=== PATIENT | female | born 1955 | race Two or more races ===

== ENCOUNTER 2024-11-16 08:27 | Outpatient (RCR) | payer MEDICARE, BC, SELFPAY ==
--- NOTE | 2024-11-03 13:12 | CTCCONSULT_ITS ---
[facility] [address] [place], [place] [address] Consultation Note Date: 11/03/2024 MR#: [id number] Name: PARISH PRIDE : 1955 Dx: C50.412 Attending physician. Jose Ferrell MD Referring physician. Liana Fields MD Reason for consultation. Patient with stage I T1b N0 HER2/zee overexpressed referred to the cancer c enter for adjuvant therapy. History of Present Illness: Patient is a 69-year-old lady who has had prior imaging studies including left mammogram showing 12 mm 11:00 nodule 11/27/2023 and more recently left breast ultrasou nd 07/04/2024 revealing category 4 suspicion for malignancy. Ultrasound-guided biopsy 09/01/2024 reveal ed invasive ductal carcinoma. HER2/zee was 3+. ER 1+ positive [place] negative. On 09/30/2024 patient un derwent lumpectomy revealing invasive carcinoma 0.9 x 0.9 x 0.5 cm T1b size with ER 1+ [place] negative an d HER2/zee 3+ with Ki-67 40 to 50%. 4 benign sentinel lymph nodes noted. margins negative. SBR 8/9 high-grade. Patient is now referred to the cancer treatment center. Medical History: High blood pressure diabetes History of gallbladder disease Meds. Ozempic Tresiba metformin Jardiance benazepril Lipitor aspirin gabapentin levocetirizine Allergies Cipro Family history. Mother had uterine cancer treated at [facility] many years ago Social History: Denies smoking drinking age of first 15 4 pregnancies 4 births Review of Systems: Has had cold heat intolerance concern with sexual functions difficulty hearing eas y bruising headaches leak urine muscle pain nocturia sleep problem Physical Exam: adequate nourished appearing lady no acute distress General: HEENT: Atraumatic no cephalic extraocular is intact no oral lesion no cervical or supraclavicular aris nopathy. CV: Breast not examined today. Chest clear to auscultation heart regular rate and rhythm ABD: Soft no organomegaly or tenderness EXT: No cyanosis clubbing or edema Assessment: 1.Stage IA T1b snN0 left breast CA HER2/zee overexpressed SBR high-grade Ki-67 40 to 50% ER 1+ [place] negative. Status post left partial mastectomy and sentinel node removal 09/30/2024. 2. Though early stage the HER2/zee overexpressed and the high-grade with elevated Ki-67 puts cancer as a more aggressive type. 3. Dr. Peters, [facility] medical oncologist, will see patient in a few da ys. 4. I will see her in a few weeks as well regarding comprehensive approach in care of this patient. 5. Thank you very much for allowing me to evaluate this very nice patient Cc: Liana Ferrell MD Electronically signed by: Alejandro Connors MD, DABR 11/03/2024 1:09 PM
--- NOTE | 2024-12-05 21:04 | CTCCONSULT_ITS ---
Patient: PARISH PRIDE : 1955 MR#: [id number] Page 3 of 4 CONSULTATION NOTE DATE OF CONSULTATION: 11/16/2024 NAME: PARISH PRIDE ACCOUNT: [id number] : 1955 AGE: 69 REFERRING PHYSICIAN: Liana Fields MD PRIMARY PHYSICIAN: Jose Ferrell MD REASON FOR VISIT: Breast cancer ER/SD HER2 positive ONCOLOGY HISTORY: DIAGNOSIS: Malignant neoplasm of upper-outer quadrant of left female breast [ICD10] C50.412; Malignant neoplasm of overlapping sites of left female breast [ICD10] C50.812 DATE OF DIAGNOSIS: 09/01/2024 STAGE/TNM: IA T1b N0 M0 Invasive ductal carcinoma large focus 0.3 cm high-grade ER 1 to 10% progesterone negative HER2 3+ TREATMENT HISTORY: Care?Plan Start?Date Cycle Day Intent TCH?1 11/16/2024 1 21 Curative?(adjuvant) HISTORY OF PRESENT ILLNESS: 69-year-old female who was diagnosed with breast cancer. Patient had a lumpectomy done on 09/30/2024 and her final diagnosis showed HER2 positive breast cancer patient is here for follow-up. OTHER MEDICAL HISTORY/CONDITIONS: INVASIVE DUCTAL LEFT BREAST CANCER - DX 09/02/24 [facility] CATARACT SURGERY - EARLY 2023 DIABETES HTN PERIPHERAL NEUROPATHY PVD LEFT BREAST LUMPECTOMY WITH SENTINEL NODE BIOPSY 10/07/24 LEFT PARITIAL KNEE REPLACMENT - 6-7 YRS AGO CHOLECYSTECTOMY - 15 YRS AGO X 4 FAMILY HISTORY: Mother:?UTERINE?-?DX?AGE?60 Children: MAT 1ST COUSIN - UNKNOWM CANCER - DX AGE 55 Cancer History:?MAT 1ST COUSION - BREAST - DX 30'S; SOCIAL HISTORY: Occupational?History:?RETIRED Education?Level:?Completed High School Marital?Status:? 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 Asprin Ec Low Dose - 81 mg Daily 2. benazepril - 20 mg Daily 3. gabapentin - 300 mg Daily 4. Jardiance - 25 mg Daily 5. metformin - 1,000 mg Daily 6. Ozempic - 2 mg 7. Tresiba U-100 Insulin - 30 Units Daily 8. XyzaL - 5 mg Daily Medications Last Reconciled by Elly Cortés LVN on 11/03/2024 (Reconcile on Approval: ?) ALLERGIES: ciprofloxacin REVIEW OF SYSTEMS: A complete 14-point review of systems was performed and is negative except as noted in interval histo ry. PHYSICAL EXAMINATION: VITAL SIGNS: Temperature?98, B/P?118/70, Height?62?inches, Oxygen?Saturation?100% Weight?128?lbs (Merlene nge?since?11/03/24:?-4?lbs) PAIN: 0 - No pain ECOG Performance Status: 0 - Asymptomatic and fully active GENERAL APPEARANCE: Appears well, in no apparent distress, appropriately interactive. HEENT: Normocephalic, no temporal wasting, normal conjunctiva, no scleral icterus, normal hearing, li ps without lesions, neck normal range of motion. CARDIOVASCULAR: Not assessed. PULMONARY: Normal respiratory effort, no respiratory distress or use of accessory muscles, speaking i n full sentences, no tachypnea. EXTREMITIES: No pedal edema or cyanosis. SKIN: Normal skin appearance. NEUROLOGIC: Alert and oriented x4. PSHYCHIATRIC: Appropriate affect, mood normal, behavior normal, intact thought and speech. LABORATORY DATA: I have personally reviewed and interpreted each of the patient?s relevant lab tests, abnormal finding s are below: Date 11/17/24 ??WHITE?BLOOD?COUNT?(Thou/mm3) 5.0 ??RED?BLOOD?COUNT?(Miln/mm3) 4.51 ??HEMOGLOBIN?(gm/dl) 12.4 ??HEMATOCRIT?(%) 37.8 ??PLATELET?COUNT?(Thou/mm3) 247 ??NEUTROPHILS?%,?AUTO?(%) 53 ??LYMPH?%,?AUTO?(%) 37 ??NEUTROPHILS,?AUTO?(Thou/mm3) 2.6 ASSESSMENT/PLAN: ER positive HER2 positive breast cancer 4 sentinel lymph nodes were negative for cancer Discussed adjuvant chemotherapy as tumor is more than 0.5 cm Will start on TCH ORDERS: Echocardiogram TCH chemotherapy orders placed CBC CMP Port catheter RETURN TO CLINIC: Before the start of cycle 1 in 2 to 3 weeks I will see her back in the clinic in 2 weeks. BILLING AND COMPLIANCE: I reviewed external records from providers outside my specialty as summarized above. I spent a total of 50 minutes on this patient?s care on the day of their visit excluding time spent related to any bi lled procedures. This time includes time spent with the patient as well as time spent documenting in the medical record, reviewing patients records and tests, obtaining history, placing orders, communi cating with other healthcare professionals, counseling the patient, family or caregiver, and/or care coordination for the diagnoses above. Electronically Signed by: {Object.Sanct_ID*PnP.NameFL@M}, {Object.Sanct_ID*PnP.Suffix@U} D: {Object.Sanct_Date} T: {Object.Sanct_Time} CC: PCP: Jose Ferrell Referring: Liana Fields This document was completed utilizing speech recognition software. Grammatical errors, random word in sertions, pronoun errors, and incomplete sentences are an occasional consequence of this system due t o software limitations, ambient noise, and hardware issues. Any formal questions or concerns about th e content, text or information contained within the body of this dictation should be directly address ed to the provider for clarification.
== END 2024-11-29 23:59 | disposition home or self-care (01) ==
LOC: SCTC 08:27
PROVIDERS: PCP Internal Medicine; Referring Provider Surgery; Visit Provider Internal Medicine Hematology & Oncology
DX: C50.412 Malignant neoplasm of upper-outer quadrant of left female breast (principal); Z17.0 Estrogen receptor positive status [ER+]; Z17.22 Progesterone receptor negative status; Z17.32 Human epidermal growth factor receptor 2 negative status; Z90.12 Acquired absence of left breast and nipple
CPT/HCPCS: 99213; G0463

== ENCOUNTER → 2024-11-17 | Outpatient (CLI) | payer MEDICARE, BC, SELFPAY ==
[2024-11-17 17:41] LABS: Basophils % (Auto) 1 % (0-2.5); Eosinophils % (Auto) 1 % (0-10); Hematocrit 37.8 % (36.0-46.0); Hemoglobin 12.4 g/dL (12.0-16.0); Immature Granulocytes % (Auto) 0 % (0-0); Immature Granulocytes Auto 0.01 Thou/mm3 (0.00-0.00); Lymphocytes # (Auto) 1.9 Thou/mm3 (1.0-4.8); Lymphocytes % (Auto) 37 % (10-50); Mean Corpuscular HGB Conc 32.8 g/dl (31.0-37.0); Mean Corpuscular Hemoglobin 27.5 pg (25.0-35.0); Mean Corpuscular Volume 84 fL (80-100); Monocytes # (Auto) 0.4 Thou/mm3 (0.0-0.8); Monocytes % (Auto) 8 % (0-12); Neutrophils # (Auto) 2.6 Thou/mm3 (1.8-7.7); Neutrophils % (Auto) 53 % (37-80); Nucleated Red Blood Cell % 0 /100 WBC (0); Platelet Count 247 Thou/mm3 (140-440); Red Blood Count 4.51 Miln/mm3 (4.00-5.20)
[2024-11-17 18:04] LABS: Glucose Estimated Average 194 mg/dL (80-131); Hemoglobin A1C 8.4 % Hgb (4.8-6.0)
[2024-11-17 18:05] LABS: Alanine Aminotransferase 21 U/L (10-49); Albumin, Serum 4.6 gm/dL (3.4-4.8); Albumin/Globulin Ratio 1.8 (1.2-2.2); Alkaline Phosphatase 137 U/L (46-116); Anion Gap 10 (7-16); Aspartate Amino Transferase 20 U/L (0-34); BUN/Creatinine Ratio 24 Ratio (12-20); Bilirubin,Total 0.4 mg/dL (0.3-1.2); Blood Urea Nitrogen 19 mg/dL (9-23); Carbon Dioxide 27.8 mMol/L (20.0-31.0); Chloride 103 mMol/L (98-107); Creatinine (Component) 0.8 mg/dL (0.6-1.3); Globulin 2.5 gm/dL (2.3-3.5); Glucose 184 mg/dL (74-106); Osmolality,Calculated 288 (275-295); Potassium 4.4 mMol/L (3.4-5.1); Sodium 141 mMol/L (136-145); Total Protein 7.1 gm/dL (5.7-8.2); eGFR > 60 See Note
== END | disposition home or self-care (01) ==
PROVIDERS: PCP Internal Medicine; Referring Provider Internal Medicine Hematology & Oncology; Visit Provider Nurse Practitioner Family
DX: C50.412 Malignant neoplasm of upper-outer quadrant of left female breast (principal); E11.65 Type 2 diabetes mellitus with hyperglycemia; E78.5 Hyperlipidemia, unspecified; I10 Essential (primary) hypertension
CPT/HCPCS: 36415; 80053; 83036; 85025

== ENCOUNTER 2024-12-13 07:11 | Outpatient (CLI) | payer MEDICARE, BC, SELFPAY ==
[2024-12-09 12:47] VITALS: BMI 24.1
[2024-12-12 10:49] LABS: Basophils % (Auto) 1 % (0-2.5); Eosinophils % (Auto) 1 % (0-10); Hematocrit 39.1 % (36.0-46.0); Hemoglobin 12.5 g/dL (12.0-16.0); Immature Granulocytes % (Auto) 0 % (0-0); Immature Granulocytes Auto 0.01 Thou/mm3 (0.00-0.00); Lymphocytes # (Auto) 1.2 Thou/mm3 (1.0-4.8); Lymphocytes % (Auto) 23 % (10-50); Mean Corpuscular Volume 84 fL (80-100); Monocytes # (Auto) 0.3 Thou/mm3 (0.0-0.8); Monocytes % (Auto) 6 % (0-12); Neutrophils # (Auto) 3.7 Thou/mm3 (1.8-7.7); Neutrophils % (Auto) 69 % (37-80); Nucleated Red Blood Cell % 0 /100 WBC (0); Platelet Count 181 Thou/mm3 (140-440); RDW Standard Deviation 39.8 fL (36.4-46.3); Red Blood Count 4.63 Miln/mm3 (4.00-5.20); White Blood Count 5.3 Thou/mm3 (3.6-11.0)
[2024-12-12 10:52] LABS: Partial Thromboplastin Time 25.9 Seconds (22.0-36.0); Prothrombin Time 10.9 Seconds (9.0-12.2)
[2024-12-12 11:01] LABS: Blood Urea Nitrogen 18 mg/dL (9-23); Creatinine (Component) 0.9 mg/dL (0.6-1.3); Estimated Creatinine Clearance 47.7 mL/min (>60); eGFR > 60 See Note
[2024-12-13] VITALS (15 sets, daily range): BP systolic 128–152; BP diastolic 58–85; PULSE 63–81; RESP 10–21; TEMP 36.2–36.6; O2SAT 98–100
--- NOTE | 2024-12-13 08:30 | XR_ITS ---
Examination: IR venous implantation Port-A-Cath Ultrasound-guided needle placement right internal jugular vein. Fluoroscopy AP Chest, portable single view Exam date and time: Diagnosis malignant neoplasm breast, need for long-term intravenous chemotherapy. Informed consent provided Technique: A timeout was completed, verifying correct patient, procedure, site, positioning, and special equipment if applicable The patient was placed in a dependent position appropriate for central line placement based on the vein to be cannulated. The patient's right neck was prepped and draped in sterile fashion. Maximum Sterile Barrier Technique used including cap, mask, sterile gown, sterile gloves, and sterile full body drape. If ultrasound technique used: sterile gel and sterile probe covers. Hand Hygiene performed using proper scrub, soap and water, or alcohol-based hand rub. Site right portable apparatus utilized to confirm patency of the right internal jugular vein Utilizing ultrasonographic guidance access 21-gauge needle puncture into the right internal jugular vein. Ultrasound images were recorded and stored. Blunt dissection utilized for placement of Port-A-Cath reservoir in the subcutaneous pocket upper right chest, connected to 8 Mal[place]ian 20 cm Port-A-Cath line in place to a venous sheath into the superior vena cava in proper position Perfusion to the extremity distal to the point of catheter insertion was checked and found to be adequate The attending radiologist was present for the entire procedure Estimated blood loss4 cc. Findings: Under fluoroscopy, the tip of the catheter is in good position in the vena cava. Portable chest x-ray, post Port-A-Cath placement, as ordered. Impression: Successful ultrasound-guided needle placement right internal jugular vein. Successful IR venous implantation [id number] 0.1 minute radiation dose 1.98 milligray 1 spot fluoroscopic chest film. AP portable chest completion procedure demonstrates satisfactory position Port-A-Cath tip SVC. May use the catheter
[2024-12-13] MEDS: HEPARIN SOD LOCK SYR 100 UNIT/ML 500 UNIT STFIELD (09:37)
[2024-12-13] MEDS: SODIUM CHLORIDE 0.9% 250 ML 250 ML 20 ML IV (09:37)
[2024-12-13] MEDS: ceFAZolin 1 GM in SODIUM CHLORIDE 0.9% 100 ML IV (09:37)
[2024-12-13] MEDS: LIDOCAINE INJ PF 1% 5 ML VIAL 20 ML INFL (09:37)
[2024-12-13] MEDS: ceFAZolin INJ 1 GM VIAL STFIELD (09:54)
[2024-12-13] MEDS: fentaNYL CIT INJ 50 mCg/ML AMP 2ML IVP ×2 (09:58→10:15)
[2024-12-13] MEDS: LIDOCAINE 1% W/EPI 1:100K 20 ML VIAL INFL (10:12)
--- NOTE | 2024-12-13 13:30 | ECHO_ITS ---
Transthoracic Echo Report Ht (in): 61 Wt (lb): 128 Exam Location: [facility] Status: Preadmit Statistical Clerk Advertising: Azalia Winston Indications: Procedure Performed: BP: 128 / 84 HR: Rhythm: Sinus Technical Quality: Fair MEASUREMENTS (Male / Female) Normal Values 2D ECHO LV Diastolic Diameter PLAX 3.8 cm 4.2 - 5.9 / 3.9 - 5.3 cm LV Systolic Diameter PLAX 2.5 cm IVS Diastolic Thickness 0.9 cm 0.6 - 1.0 / 0.6 - 0.9 cm LVPW Diastolic Thickness 0.9 cm 0.6 - 1.0 / 0.6 - 0.9 cm LV Relative Wall Thickness 0.5 LVOT Diameter 1.7 cm LA Volume Index 22.7 cm?/m? 16 - 28 cm?/m? Ascending Aorta Diameter 2.6 cm M-MODE Aortic Root Diameter MM 2.6 cm LA Systolic Diameter MM 3.2 cm LA Ao Ratio MM 1.2 AV Cusp Separation MM 1.7 cm DOPPLER AV Peak Velocity 96.1 cm/s AV Peak Gradient 3.7 mmHg AV Mean Gradient 2.0 mmHg AV Velocity Time Integral 24.0 cm LVOT Peak Velocity 90.2 cm/s LVOT Peak Gradient 3.3 mmHg LVOT Velocity Time Integral 20.6 cm AV Area Cont Eq vti 1.9 cm? AV Area Cont Eq pk 2.1 cm? MV Peak Velocity 88.9 cm/s MV Peak Gradient 3.2 mmHg MV Mean Velocity 58.9 cm/s MV Mean Gradient 2.0 mmHg MV Area PHT 2.8 cm? Mitral E Point Velocity 68.9 cm/s Mitral A Point Velocity 91.2 cm/s Mitral E to A Ratio 0.8 LV E' Lateral Velocity 10.0 cm/s Mitral E to LV E' Lateral Ratio 6.9 LV E' Septal Velocity 6.9 cm/s Mitral E to LV E' Septal Ratio 10.1 FINDINGS Left Ventricle Normal left ventricular size, wall thickness, systolic function with no obvious regional wall motion abnormalities. The ejection fraction is visually estimated at 60-65%. Right Ventricle The right ventricle is normal in size and systolic function. Left Atrium The left atrium is normal by two-dimensional, color flow and Doppler imaging with no structural abnormalities, no thrombus formation present. Right Atrium The right atrium is normal by two-dimensional imaging, color flow and Doppler imaging with no struct ural abnormalities, no thrombus formation present. Atrial Septum The interatrial septum appears normal with no evidence of a shunt. Aorta The aorta is normal by two-dimensional, color flow and Doppler interrogation. Mitral Valve The mitral valve is normal by two-dimensional, color flow and Doppler interrogation. There is trace mitral valve regurgitation. Aortic Valve The aortic valve is trileaflet and normal by two-dimensional, color flow and Doppler interrogation. There is no significant aortic valve regurgitation. Tricuspid Valve The tricuspid valve is normal by two-dimensional, color flow and Doppler interrogation. There is tra ce tricuspid valve regurgitation. Pulmonic Valve There is no significant pulmonic valve regurgitation. Vessels The pulmonary artery appears normal. The inferior vena cava pulmonary and hepatic veins appear omari l. Pericardium The pericardium is normal by two-dimensional imaging. There is no significant pericardial effusion. CONCLUSIONS Indication: Malignant neoplasm female breast. Normal LV size and function. Stage I diastolic dysfuntion. Estimated EF 60-65% Normal RV size and function Trace MR, TR. Misael Washington (Electronically Signed) Final Date: 13 December 2024 19:44
== END 2024-12-13 12:25 | disposition home or self-care (01) ==
PROVIDERS: Radiology Diagnostic Radiology; Referring Provider Internal Medicine Hematology & Oncology; Visit Provider Internal Medicine Hematology & Oncology
DX: C50.412 Malignant neoplasm of upper-outer quadrant of left female breast (principal); C50.812 Malignant neoplasm of overlapping sites of left female breast; I08.1 Rheumatic disorders of both mitral and tricuspid valves; Z01.812 Encounter for preprocedural laboratory examination
CPT/HCPCS: 36558; 36415; 76937; 77001; 82565; 84520; 85025; 85610; 85730; 93306; C1769; C1788; C1894; J0690; J1642; J3010; J3490; J7050

== ENCOUNTER 2024-12-28 11:04 | Outpatient (RCR) | payer MEDICARE, BC, SELFPAY ==
[2024-12-23 11:58] LABS: Basophils % (Auto) 1 % (0-2.5); Eosinophils % (Auto) 1 % (0-10); Hematocrit 36.4 % (36.0-46.0); Hemoglobin 11.7 g/dL (12.0-16.0); Immature Granulocytes % (Auto) 0 % (0-0); Lymphocytes # (Auto) 1.3 Thou/mm3 (1.0-4.8); Lymphocytes % (Auto) 26 % (10-50); Mean Corpuscular HGB Conc 32.1 g/dl (31.0-37.0); Mean Corpuscular Hemoglobin 26.5 pg (25.0-35.0); Mean Corpuscular Volume 82 fL (80-100); Monocytes # (Auto) 0.3 Thou/mm3 (0.0-0.8); Monocytes % (Auto) 5 % (0-12); Neutrophils # (Auto) 3.3 Thou/mm3 (1.8-7.7); Neutrophils % (Auto) 68 % (37-80); Nucleated Red Blood Cell % 0 /100 WBC (0); Platelet Count 195 Thou/mm3 (140-440); RDW Standard Deviation 38.9 fL (36.4-46.3); Red Blood Count 4.42 Miln/mm3 (4.00-5.20); White Blood Count 4.8 Thou/mm3 (3.6-11.0)
[2024-12-23 12:13] LABS: Alanine Aminotransferase 15 U/L (10-49); Albumin, Serum 4.4 gm/dL (3.4-4.8); Albumin/Globulin Ratio 1.7 (1.2-2.2); Alkaline Phosphatase 124 U/L (46-116); Anion Gap 10 (7-16); Aspartate Amino Transferase 19 U/L (0-34); BUN/Creatinine Ratio 16 Ratio (12-20); Bilirubin,Total 0.5 mg/dL (0.3-1.2); Blood Urea Nitrogen 13 mg/dL (9-23); Calcium 9.4 mg/dL (8.3-10.6); Calcium (Corrected) 9.4 mg/dL (8.5-10.1); Carbon Dioxide 26.2 mMol/L (20.0-31.0); Chloride 101 mMol/L (98-107); Creatinine (Component) 0.8 mg/dL (0.6-1.3); Globulin 2.6 gm/dL (2.3-3.5); Glucose 287 mg/dL (74-106); Osmolality,Calculated 283 (275-295); Potassium 3.9 mMol/L (3.4-5.1); Sodium 137 mMol/L (136-145); eGFR > 60 See Note
--- NOTE | 2024-12-26 14:50 | CTCFLWUP_ITS ---
Patient: PARISH PRIDE : 1955 Page 2 of 2 FOLLOW UP NOTE DATE OF SERVICE: 12/26/2024 NAME: PARISH PRIDE ACCOUNT: [id number] : 1955 AGE: 69 INTERVAL HISTORY: Patient is 69-year-old woman with a diagnosis of invasive ductal carcinoma. Patient is planning a tr ip to [place] and did not start her chemotherapy. Patient says she want to attend her nephew's weddin g before planning for chemotherapy. ONCOLOGY HISTORY: DIAGNOSIS: Malignant neoplasm of upper-outer quadrant of left female breast [ICD10] C50.412; Malignant neoplasm of overlapping sites of left female breast [ICD10] C50.812 DATE OF DIAGNOSIS: 09/01/2024 STAGE/TNM: IA T1b N0 M0 Invasive ductal carcinoma large focus 0.3 cm high-grade ER 1 to 10% progesterone negative HER2 3+ TREATMENT HISTORY: Care?Plan Start?Date Cycle Day Intent TCH?1 11/16/2024 1 21 Curative?(adjuvant) HISTORY OF PRESENT ILLNESS: 69-year-old female who was diagnosed with breast cancer. Patient had a lumpectomy done on 09/30/2024 and her final diagnosis showed HER2 positive breast cancer patient is here for follow-up. patient is yet to start chemotherapy. Nephew's wedding before starting chemotherapy. Patient's nephew's wedding is planned in December. P atient understand that delaying her chemotherapy start will likely affect her outcome. Patient says that she does not believe that she has breast cancer. She understands she had surgery and biopsy to prove she has cancer but she believes that she want to get it back. She agrees to come back in December 2024 after the wedding trip to [place] to resume her treatment her e. Patient already had port catheter and echocardiogram completed. OTHER MEDICAL HISTORY/CONDITIONS: INVASIVE DUCTAL LEFT BREAST CANCER - DX 09/02/24 [facility] CATARACT SURGERY - EARLY 2023 DIABETES HTN PERIPHERAL NEUROPATHY PVD LEFT BREAST LUMPECTOMY WITH SENTINEL NODE BIOPSY 10/07/24 LEFT PARITIAL KNEE REPLACMENT - 6-7 YRS AGO CHOLECYSTECTOMY - 15 YRS AGO X 4 FAMILY HISTORY: Mother:?UTERINE?-?DX?AGE?60 Children: MAT 1ST COUSIN - UNKNOWM CANCER - DX AGE 55 Cancer History:?MAT 1ST COUSION - BREAST - DX 30'S; SOCIAL HISTORY: Occupational?History:?RETIRED Education?Level:?Completed High School Marital?Status:? 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 Asprin Ec Low Dose - 81 mg Daily 2. benazepril - 20 mg Daily 3. gabapentin - 300 mg Daily 4. hydrocodone-acetaminophen - 5-325 mg 1 tab q6 5. Jardiance - 25 mg Daily 6. metformin - 1,000 mg Daily 7. Ozempic - 2 mg 8. Tresiba U-100 Insulin - 30 Units Daily 9. XyzaL - 5 mg Daily Medications Last Reconciled by Eleanor Roa MA on 12/26/2024 ALLERGIES: ciprofloxacin REVIEW OF SYSTEMS: A complete 14-point review of systems was performed and is negative except as noted in interval histo ry. PHYSICAL EXAMINATION: VITAL SIGNS: PAIN: 0 - No pain ECOG Performance Status: 0 - Asymptomatic and fully active GENERAL APPEARANCE: Appears well, in no apparent distress, appropriately interactive. HEENT: Normocephalic, no temporal wasting, normal conjunctiva, no scleral icterus, normal hearing, li ps without lesions, neck normal range of motion. CARDIOVASCULAR: Not assessed. PULMONARY: Normal respiratory effort, no respiratory distress or use of accessory muscles, speaking i n full sentences, no tachypnea. EXTREMITIES: No pedal edema or cyanosis. SKIN: Normal skin appearance. NEUROLOGIC: Alert and oriented x4. PSHYCHIATRIC: Appropriate affect, mood normal, behavior normal, intact thought and speech. LABORATORY DATA: I have personally reviewed and interpreted each of the patient?s relevant lab tests, abnormal finding s are below: Date 12/23/24 ??GLUCOSE,RANDOM?(mg/dL) 287?H ??BLOOD?UREA?NITROGEN?(mg/dL) 13 ??CREATININE?(mg/dL) 0.80 ??SODIUM?(mmol/L) 137 ??POTASSIUM?(mmol/L) 3.9 ??CHLORIDE?(mmol/L) 101 ??CrCl?(CandG)?(ml/min) 61.66 ??AST/SGOT?(Unit/L) 19 ??ALT/SGPT?(Unit/L) 15 ??ALKALINE?PHOSPHATASE?(Unit/L) 124?H ??BILIRUBIN,?TOTAL?(mg/dL) 0.5 ??PROTEIN?TOTAL?(gm/dl) 7.0 ??ALBUMIN,?SERUM?(gm/dl) 4.4 ??GLOBULIN?(gm/dl) 2.6 ??ALBUMIN/GLOBULIN?RATIO 1.7 ??CALCIUM,?SERUM?(mg/dL) 9.4 ??CALCIUM?SERUM?(CORRECTED)?(mg/dL) 9.4 ASSESSMENT/PLAN: ER positive HER2 positive breast cancer 4 sentinel lymph nodes were negative for cancer Discussed adjuvant chemotherapy as tumor is more than 0.5 cm Will start on TCH Patient already completed port catheter and echocardiogram Will start chemotherapy once patient willing to Patient's surgery was in August and she will start her chemotherapy in December 2024. It will likel y affect her outcome. Patient aware Will start chemotherapy as per patient's request in December 2024 CBC CMP RETURN TO CLINIC: 1 month BILLING AND COMPLIANCE: I reviewed external records from providers outside my specialty as summarized above. I spent a total of 50 minutes on this patient?s care on the day of their visit excluding time spent related to any bi lled procedures. This time includes time spent with the patient as well as time spent documenting in the medical record, reviewing patients records and tests, obtaining history, placing orders, communi cating with other healthcare professionals, counseling the patient, family or caregiver, and/or care coordination for the diagnoses above. Electronically Signed by: Eren Peters MD T: 2:48 PM CC: Alejandro?Dory,? PCP: No Primary/family, Physician Referring: Alejandro Connors This document was completed utilizing speech recognition software. Grammatical errors, random word in sertions, pronoun errors, and incomplete sentences are an occasional consequence of this system due t o software limitations, ambient noise, and hardware issues. Any formal questions or concerns about e content, text or information contained within the body of this dictation should be directly address ed to the provider for clarification.
== END 2024-12-30 23:59 | disposition home or self-care (01) ==
LOC: SCTC 11:04
PROVIDERS: Internal Medicine Hematology & Oncology; Referring Provider Radiology Therapeutic Radiology; Visit Provider Radiology Therapeutic Radiology
DX: C50.212 Malignant neoplasm of upper-inner quadrant of left female breast (principal); Z17.0 Estrogen receptor positive status [ER+]; Z17.31 Human epidermal growth factor receptor 2 positive status; Z17.22 Progesterone receptor negative status
CPT/HCPCS: 36591; 80053; 85025; 99212; A4216; J1642; G0463

== ENCOUNTER 2025-01-20 07:21 | Outpatient (RCR) | payer MEDICARE, BC, SELFPAY ==
[2025-01-17 10:30] LABS: Basophils % (Auto) 1 % (0-2.5); Eosinophils # (Auto) 0.1 Thou/mm3 (0.0-0.5); Eosinophils % (Auto) 1 % (0-10); Hematocrit 33.7 % (36.0-46.0); Immature Granulocytes % (Auto) 0 % (0-0); Immature Granulocytes Auto 0.01 Thou/mm3 (0.00-0.00); Lymphocytes # (Auto) 1.1 Thou/mm3 (1.0-4.8); Lymphocytes % (Auto) 22 % (10-50); Mean Corpuscular HGB Conc 32.6 g/dl (31.0-37.0); Mean Corpuscular Hemoglobin 27.2 pg (25.0-35.0); Mean Corpuscular Volume 83 fL (80-100); Monocytes # (Auto) 0.3 Thou/mm3 (0.0-0.8); Monocytes % (Auto) 6 % (0-12); Neutrophils # (Auto) 3.6 Thou/mm3 (1.8-7.7); Neutrophils % (Auto) 70 % (37-80); Nucleated Red Blood Cell % 0 /100 WBC (0); Platelet Count 176 Thou/mm3 (140-440); RDW Standard Deviation 39.6 fL (36.4-46.3); Red Blood Count 4.04 Miln/mm3 (4.00-5.20); White Blood Count 5.2 Thou/mm3 (3.6-11.0)
[2025-01-17 10:54] LABS: Alanine Aminotransferase 13 U/L (10-49); Albumin/Globulin Ratio 1.7 (1.2-2.2); Alkaline Phosphatase 137 U/L (46-116); Anion Gap 9 (7-16); Aspartate Amino Transferase 18 U/L (0-34); BUN/Creatinine Ratio 21 Ratio (12-20); Bilirubin,Total 0.4 mg/dL (0.3-1.2); Blood Urea Nitrogen 19 mg/dL (9-23); Calcium 9.1 mg/dL (8.3-10.6); Calcium (Corrected) 9.1 mg/dL (8.5-10.1); Carbon Dioxide 24.8 mMol/L (20.0-31.0); Chloride 104 mMol/L (98-107); Creatinine (Component) 0.9 mg/dL (0.6-1.3); Globulin 2.4 gm/dL (2.3-3.5); Glucose 316 mg/dL (74-106); Osmolality,Calculated 289 (275-295); Sodium 138 mMol/L (136-145); Total Protein 6.4 gm/dL (5.7-8.2); eGFR > 60 See Note
--- NOTE | 2025-01-19 14:24 | CTCFLWUP_ITS ---
Patient: PARISH PRIDE : 1955 Page 2 of 2 FOLLOW UP NOTE DATE OF SERVICE: 01/19/2025 NAME: PARISH PRIDE ACCOUNT: [id number] : 1955 AGE: 69 INTERVAL HISTORY: Patient is 69-year-old woman with a diagnosis of invasive ductal carcinoma. Patient received her first chemotherapy and done well. No nausea or vomiting. ONCOLOGY HISTORY:?CloneBlock Oncology Hx? DIAGNOSIS: Malignant neoplasm of upper-outer quadrant of left female breast [ICD10] C50.412; Malignant neoplasm of overlapping sites of left female breast [ICD10] C50.812 DATE OF DIAGNOSIS: 09/01/2024 STAGE/TNM: IA T1b N0 M0 Invasive ductal carcinoma large focus 0.3 cm high-grade ER 1 to 10% progesterone negative HER2 3+ TREATMENT HISTORY: Care?Plan Start?Date Cycle Day Intent TCH?1 11/16/2024 1 21 Curative?(adjuvant) HISTORY OF PRESENT ILLNESS: 69-year-old female who was diagnosed with breast cancer. Patient had a lumpectomy done on 09/30/2024 and her final diagnosis showed HER2 positive breast cancer patient is here for follow-up. patient is yet to start chemotherapy. Nephew's wedding before starting chemotherapy. Patient's nephew's wedding is planned in December. Patient understand that delaying her chemotherapy start will likely affect her outcome. Patient says that she does not believe that she has breast cancer. She understands she had surgery and biopsy to prove she has cancer but she believes that she want to get it back. She agrees to come back in December 2024 after the wedding trip to [place] to resume her treatment here. Patient already had port catheter and echocardiogram completed. OTHER MEDICAL HISTORY/CONDITIONS: INVASIVE DUCTAL LEFT BREAST CANCER - DX 09/02/24 [facility]ARD CATARACT SURGERY - EARLY 2023 DIABETES HTN PERIPHERAL NEUROPATHY PVD LEFT BREAST LUMPECTOMY WITH SENTINEL NODE BIOPSY 10/07/24 LEFT PARITIAL KNEE REPLACMENT - 6-7 YRS AGO CHOLECYSTECTOMY - 15 YRS AGO X 4 FAMILY HISTORY: Mother:?UTERINE?-?DX?AGE?60 Children: MAT 1ST COUSIN - UNKNOWM CANCER - DX AGE 55 Cancer History:?MAT 1ST COUSION - BREAST - DX 30'S; SOCIAL HISTORY: Occupational?History:?RETIRED Education?Level:?Completed High School Marital?Status:? Tobacco?Pack?per?Day:?0 Tobacco?Use:?DENIES ETOH?Use:?SOCIALLY Drug?Note:?DENIES Social?History?Note:?LIVES?WITH? [employer] MANAGER HISTORY: Menarche?-?Age:?12 Menopause:?54 Hormone?Use:?DENIES :?4 Live?Births:?4 Age?1st?:?15 MEDICATIONS: 1. Asprin Ec Low Dose - 81 mg Daily 2. benazepril - 20 mg Daily 3. gabapentin - 300 mg Daily 4. hydrocodone-acetaminophen - 5-325 mg 1 tab q6 5. Jardiance - 25 mg Daily 6. metformin - 1,000 mg Daily 7. Ozempic - 2 mg 8. Tresiba U-100 Insulin - 30 Units Daily 9. XyzaL - 5 mg Daily?Palabra Meds? Medications Last Reconciled by Patricia Velasco MA on 01/19/2025 ALLERGIES: ciprofloxacin REVIEW OF SYSTEMS: A complete 14-point review of systems was performed and is negative except as noted in interval history. PHYSICAL EXAMINATION:?CloneBlock PE? VITAL SIGNS: PAIN: 0 - No pain ECOG Performance Status: 0 - Asymptomatic and fully active GENERAL APPEARANCE: Appears well, in no apparent distress, appropriately interactive. HEENT: Normocephalic, no temporal wasting, normal conjunctiva, no scleral icterus, normal hearing, lips without lesions, neck normal range of motion. CARDIOVASCULAR: Not assessed. PULMONARY: Normal respiratory effort, no respiratory distress or use of accessory muscles, speaking in full sentences, no tachypnea. EXTREMITIES: No pedal edema or cyanosis. SKIN: Normal skin appearance. NEUROLOGIC: Alert and oriented x4. PSHYCHIATRIC: Appropriate affect, mood normal, behavior normal, intact thought and speech. LABORATORY DATA: I have personally reviewed and interpreted each of the patient?s relevant lab tests, abnormal findings are below: Date 01/17/25 ??WHITE?BLOOD?COUNT?(Thou/mm3) 5.2 ??RED?BLOOD?COUNT?(Miln/mm3) 4.04 ??HEMOGLOBIN?(gm/dl) 11.0?L ??HEMATOCRIT?(%) 33.7?L ??PLATELET?COUNT?(Thou/mm3) 176 ??NEUTROPHILS?%,?AUTO?(%) 70 ??LYMPH?%,?AUTO?(%) 22 ??NEUTROPHILS,?AUTO?(Thou/mm3) 3.6 ASSESSMENT/PLAN:?Federico Peters Assessment/Plan? ER positive HER2 positive breast cancer 4 sentinel lymph nodes were negative for cancer Discussed adjuvant chemotherapy as tumor is more than 0.5 cm Patient is on TCH Completed cycle 1 doing well Continue chemotherapy Patient should see radiation oncology after cycle 6 for radiation Advised to take prophylactic nausea medications as needed CBC CMP RETURN TO CLINIC: I will see her back in the clinic in 2 months. BILLING AND COMPLIANCE: I reviewed external records from providers outside my specialty as summarized above. I spent a total of 50 minutes on this patient?s care on the day of their visit excluding time spent related to any billed procedures. This time includes time spent with the patient as well as time spent documenting in the medical record, reviewing patients records and tests, obtaining history, placing orders, communicating with other healthcare professionals, counseling the patient, family or caregiver, and/or care coordination for the diagnoses above. Electronically Signed by: Eren Peters MD T: 2:22 PM CC: Alejandro?Dory? PCP: Alejandro Connors Referring: Alejandro Connors This document was completed utilizing speech recognition software. Grammatical errors, random word insertions, pronoun errors, and incomplete sentences are an occasional consequence of this system due to software limitations, ambient noise, and hardware issues. Any formal questions or concerns about the content, text or information contained within the body of this dictation should be directly addressed to the provider for clarification.
== END 2025-01-27 23:59 | disposition home or self-care (01) ==
LOC: SCTC 07:21
PROVIDERS: PCP Internal Medicine; Referring Provider Radiology Therapeutic Radiology; Visit Provider Internal Medicine Hematology & Oncology
DX: Z51.11 Encounter for antineoplastic chemotherapy (principal); C50.212 Malignant neoplasm of upper-inner quadrant of left female breast; Z17.0 Estrogen receptor positive status [ER+]; Z17.22 Progesterone receptor negative status; Z17.31 Human epidermal growth factor receptor 2 positive status; Z90.12 Acquired absence of left breast and nipple
CPT/HCPCS: 36591; 80053; 85025; 96367; 96372; 96413; 96415; 96417; 99212; A4216; J1453; J1642; J2405; J2506; J7050; J9045; J9171; Q5117; G0463

== ENCOUNTER → 2025-01-24 | Outpatient (CLI) | payer MEDICARE, BC, SELFPAY ==
[2025-01-24 09:38] LABS: Glucose Estimated Average 209 mg/dL (80-131); Hemoglobin A1C 8.9 % Hgb (4.8-6.0)
[2025-01-24 10:03] LABS: Alanine Aminotransferase 14 U/L (10-49); Albumin/Globulin Ratio 1.7 (1.2-2.2); Anion Gap 8 (7-16); Aspartate Amino Transferase 18 U/L (0-34); BUN/Creatinine Ratio 33 Ratio (12-20); Bilirubin,Total 0.4 mg/dL (0.3-1.2); Blood Urea Nitrogen 23 mg/dL (9-23); Calcium 9.4 mg/dL (8.3-10.6); Calcium (Corrected) 9.4 mg/dL (8.5-10.1); Carbon Dioxide 28.4 mMol/L (20.0-31.0); Chloride 103 mMol/L (98-107); Creatinine (Component) 0.7 mg/dL (0.6-1.3); Globulin 2.3 gm/dL (2.3-3.5); Glucose 169 mg/dL (74-106); Osmolality,Calculated 285 (275-295); Potassium 4.8 mMol/L (3.4-5.1); Sodium 139 mMol/L (136-145); Total Protein 6.3 gm/dL (5.7-8.2); eGFR > 60 See Note
[2025-01-24 10:15] LABS: Alkaline Phosphatase 110 U/L (46-116)
== END | disposition home or self-care (01) ==
LOC: COPL 08:11
PROVIDERS: PCP Internal Medicine; Referring Provider Nurse Practitioner Family; Visit Provider Nurse Practitioner Family
DX: E11.65 Type 2 diabetes mellitus with hyperglycemia (principal); E78.5 Hyperlipidemia, unspecified; I10 Essential (primary) hypertension
CPT/HCPCS: 36415; 80053; 83036

== ENCOUNTER 2025-02-09 08:56 | Outpatient (RCR) | payer MEDICARE, BC, SELFPAY ==
[2025-02-07 09:15] LABS: Basophils # (Auto) 0.1 Thou/mm3 (0.0-0.2); Basophils % (Auto) 2 % (0-2.5); Eosinophils % (Auto) 1 % (0-10); Hematocrit 32.1 % (36.0-46.0); Hemoglobin 10.6 g/dL (12.0-16.0); Immature Granulocytes % (Auto) 0 % (0-0); Immature Granulocytes Auto 0.01 Thou/mm3 (0.00-0.00); Lymphocytes # (Auto) 1.1 Thou/mm3 (1.0-4.8); Lymphocytes % (Auto) 26 % (10-50); Mean Corpuscular Volume 82 fL (80-100); Monocytes # (Auto) 0.4 Thou/mm3 (0.0-0.8); Monocytes % (Auto) 9 % (0-12); Neutrophils # (Auto) 2.6 Thou/mm3 (1.8-7.7); Neutrophils % (Auto) 62 % (37-80); Nucleated Red Blood Cell % 0 /100 WBC (0); Platelet Count 207 Thou/mm3 (140-440); RDW Standard Deviation 39.1 fL (36.4-46.3); Red Blood Count 3.92 Miln/mm3 (4.00-5.20); White Blood Count 4.2 Thou/mm3 (3.6-11.0)
[2025-02-07 10:01] LABS: Alanine Aminotransferase 18 U/L (10-49); Albumin, Serum 4.1 gm/dL (3.4-4.8); Albumin/Globulin Ratio 1.7 (1.2-2.2); Alkaline Phosphatase 119 U/L (46-116); Anion Gap 8 (7-16); Aspartate Amino Transferase 18 U/L (0-34); BUN/Creatinine Ratio 21 Ratio (12-20); Bilirubin,Total 0.5 mg/dL (0.3-1.2); Blood Urea Nitrogen 15 mg/dL (9-23); Carbon Dioxide 24.9 mMol/L (20.0-31.0); Chloride 107 mMol/L (98-107); Creatinine (Component) 0.7 mg/dL (0.6-1.3); Globulin 2.4 gm/dL (2.3-3.5); Glucose 153 mg/dL (74-106); Osmolality,Calculated 283 (275-295); Potassium 3.8 mMol/L (3.4-5.1); Sodium 140 mMol/L (136-145); Total Protein 6.5 gm/dL (5.7-8.2); eGFR > 60 See Note
== END 2025-02-27 23:59 | disposition home or self-care (01) ==
LOC: SCTC 08:56
PROVIDERS: PCP Internal Medicine; Referring Provider Internal Medicine Hematology & Oncology; Visit Provider Internal Medicine Hematology & Oncology
DX: Z51.11 Encounter for antineoplastic chemotherapy (principal); C50.212 Malignant neoplasm of upper-inner quadrant of left female breast; Z17.0 Estrogen receptor positive status [ER+]; Z17.22 Progesterone receptor negative status; Z17.31 Human epidermal growth factor receptor 2 positive status
CPT/HCPCS: 36591; 80053; 85025; 96367; 96372; 96413; 96417; A4216; J1453; J1642; J2405; J2506; J7040; J7050; J9045; J9171; Q5117

== ENCOUNTER → 2025-03-16 | Outpatient (CLI) | payer MEDICARE, BC, SELFPAY ==
--- NOTE | 2025-03-16 14:01 | ECHO_ITS ---
Transthoracic Echo Report Ht (in): 61 Wt (lb): 125 Exam Location: Echo Lab Status: Outpatient Dry Curer: Purvi Branch Indications: Procedure Performed: BP: / HR: Technical Quality: Technically difficult study MEASUREMENTS (Male / Female) Normal Values 2D ECHO LV Diastolic Diameter PLAX 4.3 cm 4.2 - 5.9 / 3.9 - 5.3 cm LV Systolic Diameter PLAX 3.0 cm IVS Diastolic Thickness 1.1 cm 0.6 - 1.0 / 0.6 - 0.9 cm LVPW Diastolic Thickness 1.1 cm 0.6 - 1.0 / 0.6 - 0.9 cm LV Relative Wall Thickness 0.5 LVOT Diameter 1.5 cm Aortic Root Diameter 2.7 cm LA Systolic Diameter LX 2.9 cm 3.0 - 4.0 / 2.7 - 3.8 cm LA Volume Index 21.9 cm?/m? 16 - 28 cm?/m? Ascending Aorta Diameter 2.8 cm DOPPLER AV Peak Velocity 142.0 cm/s AV Peak Gradient 8.1 mmHg AV Mean Gradient 4.0 mmHg AV Velocity Time Integral 30.8 cm LVOT Peak Velocity 87.9 cm/s LVOT Peak Gradient 3.1 mmHg LVOT Velocity Time Integral 19.7 cm AV Area Cont Eq vti 1.1 cm? AV Area Cont Eq pk 1.1 cm? MV Area PHT 4.3 cm? MR Peak Velocity 461.0 cm/s MR Peak Gradient 85.0 mmHg Mitral E Point Velocity 77.1 cm/s Mitral A Point Velocity 90.2 cm/s Mitral E to A Ratio 0.9 LV E' Lateral Velocity 8.8 cm/s Mitral E to LV E' Lateral Ratio 8.8 LV E' Septal Velocity 9.0 cm/s Mitral E to LV E' Septal Ratio 8.5 TR Peak Velocity 432.0 cm/s TR Peak Gradient 74.6 mmHg PV Peak Velocity 99.1 cm/s PV Peak Gradient 3.9 mmHg FINDINGS Left Ventricle Normal left ventricular size, wall thickness, systolic function with no obvious regional wall motion abnormalities. The ejection fraction is visually estimated at 60-65 %. Grade I diastolic dysfunction. Right Ventricle The right ventricle is normal in size and systolic function. Left Atrium The left atrium is normal by two-dimensional, color flow and Doppler imaging with no structural abnormalities, no thrombus formation present. Right Atrium The right atrium is normal by two-dimensional imaging, color flow and Doppler imaging with no structural abnormalities, no thrombus formation present. Atrial Septum The interatrial septum appears normal with no evidence of a shunt. Aorta The aorta is normal by two-dimensional, color flow and Doppler interrogation. Mitral Valve Mild mitral regurgitation. Aortic Valve The aortic valve is trileaflet and normal by two-dimensional, color flow and Doppler interrogation. There is no significant aortic valve regurgitation. Tricuspid Valve Trace TR. Pulmonic Valve The pulmonic valve is not well visualized. There is no significant pulmonic valve regurgitation. Vessels The pulmonary artery appears normal. The inferior vena cava pulmonary and hepatic veins appear normal. Pericardium The pericardium is normal by two-dimensional imaging. There is no significant pericardial effusion. CONCLUSIONS Indication: Malignant neoplasm of central portion of left breast. Normal LV size and function. Stage I diastolic dysfuntion. Estimated EF 60-65%. Normal RV size and function. Mild MR. Trace TR. Misael Anumanrobby (Electronically Signed) Final Date: 17 March 2025 15:59
== END | disposition home or self-care (01) ==
LOC: SDIM 13:19
PROVIDERS: PCP Internal Medicine; Referring Provider Radiology Therapeutic Radiology; Visit Provider Radiology Therapeutic Radiology
DX: I08.1 Rheumatic disorders of both mitral and tricuspid valves (principal); C50.412 Malignant neoplasm of upper-outer quadrant of left female breast
CPT/HCPCS: 93306

== ENCOUNTER 2025-04-27 13:10 | Outpatient (RCR) | payer MEDICARE, BC, SELFPAY ==
--- NOTE | 2025-04-03 05:41 | CTCFLWUP_ITS ---
Patient: PARISH PRIDE : 1955 Page 3 of 4 FOLLOW UP NOTE DATE OF SERVICE: 03/30/2025 NAME: PARISH PRIDE ACCOUNT: [id number] : 1955 AGE: 70 INTERVAL HISTORY: Patient is 70-year-old woman with a diagnosis of invasive ductal carcinoma. Patient received her first chemotherapy and done well. No nausea or vomiting. ONCOLOGY HISTORY:?CloneBlock Oncology Hx? DIAGNOSIS: Malignant neoplasm of upper-outer quadrant of left female breast [ICD10] C50.412; Malignant neoplasm of overlapping sites of left female breast [ICD10] C50.812 DATE OF DIAGNOSIS: 09/01/2024 STAGE/TNM: IA T1b N0 M0 Invasive ductal carcinoma large focus 0.3 cm high-grade ER 1 to 10% progesterone negative HER2 3+ TREATMENT HISTORY: Care?Plan Start?Date Cycle Day Intent TCH?1 11/16/2024 1 21 Curative?(adjuvant) HISTORY OF PRESENT ILLNESS: 70-year-old female who was diagnosed with breast cancer. Patient had a lumpectomy done on 09/30/2024 and her final diagnosis showed HER2 positive breast cancer patient is here for follow-up. patient is yet to start chemotherapy. Nephew's wedding before starting chemotherapy. Patient's nephew's wedding is planned in December. Patient understand that delaying her chemotherapy start will likely affect her outcome. Patient says that she does not believe that she has breast cancer. She understands she had surgery and biopsy to prove she has cancer but she believes that she want to get it back. She agrees to come back in December 2024 after the wedding trip to [place] to resume her treatment here. Patient already had port catheter and echocardiogram completed. OTHER MEDICAL HISTORY/CONDITIONS: INVASIVE DUCTAL LEFT BREAST CANCER - DX 09/02/24 RICHARD CATARACT SURGERY - EARLY 2023 DIABETES HTN PERIPHERAL NEUROPATHY PVD LEFT BREAST LUMPECTOMY WITH SENTINEL NODE BIOPSY 10/07/24 LEFT PARITIAL KNEE REPLACMENT - 6-7 YRS AGO CHOLECYSTECTOMY - 15 YRS AGO X 4 FAMILY HISTORY: Mother:?UTERINE?-?DX?AGE?60 Children: MAT 1ST COUSIN - UNKNOWM CANCER - DX AGE 55 Cancer History:?MAT 1ST COUSION - BREAST - DX 30'S; SOCIAL HISTORY: Occupational?History:?RETIRED Education?Level:?Completed High School Marital?Status:? 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 Asprin Ec Low Dose - 81 mg Daily 2. benazepril - 20 mg Daily 3. Compazine - 5 mg 1 tab Four times a day 4. Decadron - 1 tab Twice a Day 5. Emend - 125 mg (1)- 80 mg (2) 1 Pack Daily 6. gabapentin - 300 mg Daily 7. hydrocodone-acetaminophen - 5-325 mg 1 tab q6 8. Jardiance - 25 mg Daily 9. metformin - 1,000 mg Daily 10. Ozempic - 2 mg 11. Tresiba U-100 Insulin - 30 Units Daily 12. XyzaL - 5 mg Daily 13. Zofran - 8 mg 1 tab Three times a day?Palabra Meds? Medications Last Reconciled by Patricia Velasco MA on 03/30/2025 ALLERGIES: ciprofloxacin REVIEW OF SYSTEMS: A complete 14-point review of systems was performed and is negative except as noted in interval history. PHYSICAL EXAMINATION:?CloneBlock PE? VITAL SIGNS: Temperature?98.2, B/P?120/68, Oxygen?Saturation?99% Weight?126?lbs (Change?since?03/23/25:?-4.2?lbs) PAIN: 0 - No pain ECOG Performance Status: 0 - Asymptomatic and fully active GENERAL APPEARANCE: Appears well, in no apparent distress, appropriately interactive. HEENT: Normocephalic, no temporal wasting, normal conjunctiva, no scleral icterus, normal hearing, lips without lesions, neck normal range of motion. CARDIOVASCULAR: Not assessed. PULMONARY: Normal respiratory effort, no respiratory distress or use of accessory muscles, speaking in full sentences, no tachypnea. EXTREMITIES: No pedal edema or cyanosis. SKIN: Normal skin appearance. NEUROLOGIC: Alert and oriented x4. PSHYCHIATRIC: Appropriate affect, mood normal, behavior normal, intact thought and speech. LABORATORY DATA: I have personally reviewed and interpreted each of the patient?s relevant lab tests, abnormal findings are below: Date 02/28/25 03/21/25 ??WHITE?BLOOD?COUNT?(Thou/mm3) 6.9 4.8 ??RED?BLOOD?COUNT?(Miln/mm3) 3.80?L 3.50?L ??HEMOGLOBIN?(gm/dl) 10.5?L 9.9?L ??HEMATOCRIT?(%) 31.6?L 30.0?L ??PLATELET?COUNT?(Thou/mm3) 143 132?L ??NEUTROPHILS?%,?AUTO?(%) 92?H 73 ??LYMPH?%,?AUTO?(%) 6?L 20 ??NEUTROPHILS,?AUTO?(Thou/mm3) 6.4 3.5 ??GLUCOSE,RANDOM?(mg/dL) 222?H 200?H ??BLOOD?UREA?NITROGEN?(mg/dL) 19 13 ??CREATININE?(mg/dL) 0.70 0.60 ??SODIUM?(mmol/L) 138 140 ??POTASSIUM?(mmol/L) 4.1 4.1 ??CHLORIDE?(mmol/L) 106 108?H ??CrCl?(CandG)?(ml/min) 66.93 79.93 ??AST/SGOT?(Unit/L) 23 24 ??ALT/SGPT?(Unit/L) 23 23 ??ALKALINE?PHOSPHATASE?(Unit/L) 120?H 114 ??BILIRUBIN,?TOTAL?(mg/dL) 0.6 0.6 ??PROTEIN?TOTAL?(gm/dl) 6.6 6.1 ??ALBUMIN,?SERUM?(gm/dl) 4.1 3.9 ??GLOBULIN?(gm/dl) 2.5 2.2?L ??ALBUMIN/GLOBULIN?RATIO 1.6 1.8 ??CALCIUM,?SERUM?(mg/dL) 8.9 8.8 ??CALCIUM?SERUM?(CORRECTED)?(mg/dL) 8.9 8.9 ASSESSMENT/PLAN:?Federico Peters Assessment/Plan? ER positive HER2 positive breast cancer 4 sentinel lymph nodes were negative for cancer Discussed adjuvant chemotherapy as tumor is more than 0.5 cm Patient is on TCH Continue chemotherapy Patient should see radiation oncology after cycle 6 for radiation Advised to take prophylactic nausea medications as needed CBC CMP ORDERS: Order # Description [id number] Comprehensive Metabolic Panel - 12 + CBC with Auto Diff + MD Follow Up 2 Months RETURN TO CLINIC: BILLING AND COMPLIANCE: I reviewed external records from providers outside my specialty as summarized above. I spent a total of 50 minutes on this patient?s care on the day of their visit excluding time spent related to any billed procedures. This time includes time spent with the patient as well as time spent documenting in the medical record, reviewing patients records and tests, obtaining history, placing orders, communicating with other healthcare professionals, counseling the patient, family or caregiver, and/or care coordination for the diagnoses above. Electronically Signed by: Eren Peters MD T: 5:39 AM CC: Alejandro?Dory? PCP: Jose Ferrell Referring: Jose Ferrell This document was completed utilizing speech recognition software. Grammatical errors, random word insertions, pronoun errors, and incomplete sentences are an occasional consequence of this system due to software limitations, ambient noise, and hardware issues. Any formal questions or concerns about the content, text or information contained within the body of this dictation should be directly addressed to the provider for clarification.
[2025-04-11 09:36] LABS: Basophils % (Auto) 1 % (0-2.5); Eosinophils % (Auto) 0 % (0-10); Hematocrit 29.8 % (36.0-46.0); Immature Granulocytes % (Auto) 0 % (0-0); Immature Granulocytes Auto 0.02 Thou/mm3 (0.00-0.00); Lymphocytes # (Auto) 1.3 Thou/mm3 (1.0-4.8); Lymphocytes % (Auto) 23 % (10-50); Mean Corpuscular HGB Conc 33.6 g/dl (31.0-37.0); Mean Corpuscular Hemoglobin 30.1 pg (25.0-35.0); Mean Corpuscular Volume 90 fL (80-100); Monocytes # (Auto) 0.4 Thou/mm3 (0.0-0.8); Monocytes % (Auto) 7 % (0-12); Neutrophils % (Auto) 70 % (37-80); Nucleated Red Blood Cell % 0 /100 WBC (0); Platelet Count 144 Thou/mm3 (140-440); Red Blood Count 3.32 Miln/mm3 (4.00-5.20); White Blood Count 5.7 Thou/mm3 (3.6-11.0)
[2025-04-11 09:48] LABS: Alanine Aminotransferase 20 U/L (10-49); Albumin, Serum 4.1 gm/dL (3.4-4.8); Alkaline Phosphatase 111 U/L (46-116); Anion Gap 7 (7-16); Aspartate Amino Transferase 25 U/L (0-34); BUN/Creatinine Ratio 25 Ratio (12-20); Bilirubin,Total 0.5 mg/dL (0.3-1.2); Blood Urea Nitrogen 15 mg/dL (9-23); Carbon Dioxide 22.2 mMol/L (20.0-31.0); Chloride 106 mMol/L (98-107); Creatinine (Component) 0.6 mg/dL (0.6-1.3); Globulin 2.1 gm/dL (2.3-3.5); Glucose 229 mg/dL (74-106); Osmolality,Calculated 277 (275-295); Potassium 4.2 mMol/L (3.4-5.1); Sodium 135 mMol/L (136-145); Total Protein 6.2 gm/dL (5.7-8.2); eGFR > 60 See Note
== END 2025-04-29 23:59 | disposition home or self-care (01) ==
LOC: SCTC 13:10
PROVIDERS: PCP Internal Medicine; Referring Provider Internal Medicine; Visit Provider Internal Medicine Hematology & Oncology
DX: Z51.11 Encounter for antineoplastic chemotherapy (principal); C50.212 Malignant neoplasm of upper-inner quadrant of left female breast; Z17.0 Estrogen receptor positive status [ER+]; Z17.31 Human epidermal growth factor receptor 2 positive status; Z17.22 Progesterone receptor negative status; Z90.12 Acquired absence of left breast and nipple
CPT/HCPCS: 36591; 80053; 85025; 96360; 96361; 96367; 96372; 96413; 96417; 99212; A4216; J1453; J1642; J2405; J2506; J7030; J7040; J7050; J9045; J9171; Q5117; G0463

== ENCOUNTER 2025-05-03 09:44 | Emergency (ER) | payer MEDICARE, BC, SELFPAY ==
[2025-05-03 09:48] VITALS: BP 128/69; PULSE 69; RESP 18; TEMP 36.8; O2SAT 99; BMI 24.0
[2025-05-03 09:49] VITALS: PULSE 69; RESP 16; O2SAT 99; BMI 24.1
--- NOTE | 2025-05-03 10:08 | PC.NURSE ---
Patient biba with c/o high blood sugar at [facility]. Patient was there for chemo treatment and labs were drawn via port which was accessed by staff at [facility], the glucose was high at 590 per report. Blood sugar by EMS was 480 and here it was 486. Patient is alert oriented, ambulatory and responsive to staff. Per patient denies symptoms, nausea, vomiting, weakness. Patient answers all questions appropriately. Patient updated with plan of care, awaiting to be evaluated by MD.
[2025-05-03] MEDS: INSULIN HUM REGULAR 1 UNIT/0.01 ML (PER UNIT) 8 UNIT SC (10:49)
--- NOTE | 2025-05-03 10:51 | PC.NURSE ---
Rn spoke with Josy Tejeda at [facility] to inquire if patient once safe glucose range and re-visit for chemotherapy treatment Per Josy spoke with and ok if patient returns to [facility] by 12pm with blood sugar in safe range.
--- NOTE | 2025-05-03 10:52 | PD.EDRECHK ---
ED Recheck Abnl Lab Rx-RME/HPI General Chief Complaint: Recheck/Abnormal Lab/Rx Stated Complaint: HIGH BLOOD SUGAR Time Seen by Provider: 05/03/25 10:26 Arrival date/time: 05/03/25 09:44 RME / HPI RME / HPI narrative: 70 year old female with a history of invasive ductal carcinoma, status post left lumpectomy in September 2024, currently undergoing chemotherapy every 3 weeks (began 12/2024), presents to the ED with elevated blood sugar. Patient stated she was scheduled to receive her final chemotherapy treatment today and had pre-chemo labs performed yesterday and this morning. The lab results from yesterday showed elevated blood sugar, and this morning her blood glucose was 590. Mentioned that her home blood glucose monitor showed a reading in the 200s this morning. Patient states she is currently on Tresiba, Ozempic, and Jardiance for diabetes. Reports that she did not receive her weekly Ozempic injection on Thursday (5 days ago) due to the pharmacy being out of stock. Denies any problems with her glucose monitor in the past. No other associated symptoms or complaints reported. In the ED, her blood sugar was 486. Patient later reports she received a dose of Decadron yesterday, scheduled for a second dose today, and final dose tomorrow. Related Data Home Medications ?Medication ?Instructions ?Recorded ?Confirmed aspirin 81 mg chewable tablet 81 mg PO QDAY ##0 12/10/17 12/09/24 Held on 12/13/24. Instructions: Resume on 12/15/24. Restart 12/15/24 benazepril 40 mg tablet (Lotensin) 20 mg PO QDAY #0 tabs 12/10/17 09/28/24 metformin 1,000 mg tablet 1,000 mg PO DAILY #0 tabs 12/10/17 09/28/24 (Glucophage) atorvastatin 20 mg tablet 20 mg PO QDAY 02/09/19 09/28/24 empagliflozin 25 mg tablet 25 mg PO QAM 09/28/24 09/28/24 (Jardiance) gabapentin 300 mg tablet,extended 300 mg PO QPM 09/28/24 09/28/24 release 24 hr insulin degludec 100 unit/mL (3 30 unit subcut QDAY 09/28/24 09/28/24 mL) subcutaneous pen (Tresiba FlexTouch U-100 insulin) levocetirizine 5 mg tablet 5 mg PO BID 09/28/24 09/28/24 semaglutide 2 mg/dose (8 mg/3 mL) 2 mg subcut QWEEK 09/28/24 09/28/24 subcutaneous pen injector (Ozempic) Previous Rx's ?Medication ?Instructions ?Recorded docusate sodium 100 mg capsule 100 mg PO BID #40 caps 09/30/24 (Colace) hydrocodone 5 mg-acetaminophen 325 1 tab PO Q6H PRN pain (scale score 09/30/24 mg tablet 7-10) #15 tabs ibuprofen 600 mg tablet 600 mg PO Q8H PRN pain (scale 09/30/24 Held on 12/13/24. score 4-6) #15 tabs Instructions: Resume on 12/15/24. Allergies Allergy/AdvReac Type Severity Reaction Status Date / Time ciprofloxacin Allergy Mild Anaphylaxis Verified 05/03/25 09:52 Review of Systems Review of Systems Systems Reviewed: All systems reviewed, normal except as documented Past Medical History Past Medical History CARDIAC: Positive Cardiac Disorders, Peripheral Vascular Disease, Hypercholesterolemia and Hypertension RESPIRATORY: Positive Bronchitis (in past) and Sleep Apnea (test was inconclusive) GASTROINTESTINAL: Positive Gastrointestinal Disorders, Gall Bladder Disease and Gastroesophageal Reflux Disease REPRODUCTIVE: Positive Breast Cancer (Left breast) MUSCULOSKELETAL: Positive Musculoskeletal Disorders and Arthritis ENT: Positive Cataracts (bilateral) and Deafness (right HUSLIA) ENDOCRINE: Positive Endocrine Disorders and Diabetes Mellitus Type 2 HEMATOLOGIC: Positive Blood Disorders and Anemia OTHER HISTORY: Positive Hospitalization, Falls, Cancer, Breast Cancer (Left breast) and Cervical Cancer (pre cancer cells) Family History FAMILY HISTORY: Positive Family Cardiac Disorders, Family Cancer and Family Surgery Surgical History SURGICAL: Positive Cardiac Surgery, Cardiac Catheterization, Angiogram (femoral with stents placed bilateral leg), Abdominal Surgery, Arthroscopy (left), Tubal Ligation and Section (x4) Social History SMOKING STATUS: Never smoker ED Exam Narrative Physical exam: GENERAL APPEARANCE: AxOx4, no obvious distress, pallor HEENT: Cranial alopecia. NC, AT. MMM. EOMI, clear conjunctiva, oropharynx clear. NECK: Supple without lymphadenopathy. No stiffness or restricted ROM. HEART: Normal rate and regular rhythm, normal S1/S1, no m/r/g LUNGS: CTAB, moving air well. No crackles or wheezes are heard. ABDOMEN: Soft, nontender, nondistended with good bowel sounds heard. BACK: No midline C/T/L spine pain or deformity, No CVAT, no obvious deformity. EXTREMITIES: Without cyanosis, clubbing or edema. MUSCULOSKELETAL: FROM of all major joints, no chest tenderness NEUROLOGICAL: Grossly nonfocal. Alert and oriented, moving all 4 extremities. CN not formally tested but appear grossly intact. Skin: Warm and dry without any rash. Pallor. Course Quality Measures none Orders Category Date Time Status Insulin Regular Med 05/03/25 10:37 Discontinued 8 unit SC X1 ONE Vital Signs Vital signs: Vital Signs Temperature 98.3 F 05/03/25 09:48 Pulse Rate 69 05/03/25 09:48 Respiratory Rate 18 05/03/25 09:48 Blood Pressure 128/69 05/03/25 09:48 Pulse Oximetry (%) 99 05/03/25 09:48 Oxygen Delivery Method Room Air 05/03/25 09:48 Pulse ox is 99% on room air which is adequate. Recheck / Abnormal Lab / Rx MDM Narrative MDM Narrative:: Ksenia Montesinos am scribing for and in the presence of Dr. Samson. Patient data External records reviewed:: [facility] previous records (I reviewed oncologist Dr. Peters note from 04/03/2025 ) Clinical information provided by:: patient Social determinants that could affect healthcare access:: none Patient has the following chronic illnesses:: invasive ductal carcinoma, status post left lumpectomy in September 2024, currently undergoing chemotherapy every 3 weeks (began 12/2024) How is presenting disease/condition affected by chronic disease/condition?: exacerbated by Evaluation data The following diagnostics were reviewed and interpreted by me:: lab results Lab and/or radiology exams considered but not ordered:: None Interpretation Summary: 10:45 Glucose check was 354 10:49 Received 8 units of Insulin 12:07 Glucose 333 Medications / Prescriptions Medications or Prescriptions considered but not ordered:: None Medication administrations:: Medication Administration History Discontinued Medications Insulin Human Regular (Insulin Hum Regular 1 Unit/0.01 Ml (Per Unit)) 8 unit SC X1 ONE Stop: 05/03/25 10:38 Last Admin: 05/03/25 10:49 Dose: 8 unit Documented By: PAUL Co-signed By: RD See above Consultations Consultation(s) initiated? (list below): No Diagnosis Recheck Differential Diagnosis: other (hyperglycemia, chemotherapy induced hyperglycemia, steroid induced hyperglycemia ) Most likely diagnosis given after review of the tests above:: Hyperglycemia without ketosis Steroid-induced hyperglycemia Admission Indicated Admission indicated?: not indicated Admission Request Was there a request for admission?: No Disposition Plan Disposition Plan: Discharge Discharge Attestation Discharge Attestation: The patient and all family members were given an opportunity to ask questions and understood the discharge instructions. Discharge instructions specifically effects, indications for sooner follow up or return to the emergency department, and the expected course of current diagnosis. Patient condition: Stable Discharge Plan Plan Patient Disposition: HOME (Self Care) Prescriptions/Referrals Prescriptions/Med Rec: No Action metformin [Glucophage] 1,000 MG tablet 1,000 mg PO DAILY Qty: 0 aspirin 81 mg Tablet,Chewable 81 mg PO QDAY Qty: 0 benazepril [Lotensin] 40 MG tablet 20 mg PO QDAY Qty: 0 atorvastatin 20 mg Tablet 20 mg PO QDAY levocetirizine 5 mg Tablet 5 mg PO BID gabapentin 300 mg Tablet Extended Release 24 Hr 300 mg PO QPM insulin degludec [Tresiba FlexTouch U-100] 100 unit/mL (3 mL) Insulin Pen 30 unit SUBCUT QDAY Jardiance 25 mg Tablet 25 mg PO QAM Ozempic 2 mg/dose (8 mg/3 mL) Pen Injector 2 mg SUBCUT QWEEK docusate sodium [Colace] 100 mg capsule 100 mg PO BID Qty: 40 0RF hydrocodone-acetaminophen 5-325 mg tablet 1 tab PO Q6H MDD 4 PRN (Reason: pain (scale score 7-10)) Qty: 15 0RF ibuprofen 600 mg tablet 600 mg PO Q8H PRN (Reason: pain (scale score 4-6)) Qty: 15 0RF Referrals: Jose Ferrell MD [Primary Care Provider] - In 1 week Problem List Clinical Impression: Hyperglycemia without ketosis, Steroid-induced hyperglycemia Patient/Caregiver Discharge Instructions Education Materials: ED Diabetes with High Blood Sugar Additional Instructions: Take your home diabetes medicines as regular. You can follow-up with your cancer treatment center as needed. Print Language: Macedonian Stand Alone Forms: Selena Award Info., Patient Portal Info Letter
[2025-05-03 11:58] VITALS: BP 125/77; PULSE 75; RESP 17; TEMP 36.7; O2SAT 97
[2025-05-03 12:46] VITALS: BP 125/77; PULSE 78; RESP 16; O2SAT 99
== END 2025-05-03 12:47 | disposition home or self-care (01) ==
PROVIDERS: Emergency Provider Emergency Medicine; PCP Internal Medicine
DX: E11.65 Type 2 diabetes mellitus with hyperglycemia (principal)
CPT/HCPCS: 96372; 99283; J1815

== ENCOUNTER 2025-05-12 09:45 | Outpatient (RCR) | payer MEDICARE, BC, SELFPAY ==
[2025-05-02 16:45] LABS: Basophils % (Auto) 0 % (0-2.5); Eosinophils % (Auto) 0 % (0-10); Hematocrit 30.2 % (36.0-46.0); Hemoglobin 10.2 g/dL (12.0-16.0); Immature Granulocytes % (Auto) 1 % (0-0); Immature Granulocytes Auto 0.03 Thou/mm3 (0.00-0.00); Lymphocytes # (Auto) 0.6 Thou/mm3 (1.0-4.8); Lymphocytes % (Auto) 9 % (10-50); Mean Corpuscular HGB Conc 33.8 g/dl (31.0-37.0); Mean Corpuscular Hemoglobin 29.7 pg (25.0-35.0); Mean Corpuscular Volume 88 fL (80-100); Monocytes % (Auto) 1 % (0-12); Neutrophils # (Auto) 5.7 Thou/mm3 (1.8-7.7); Neutrophils % (Auto) 90 % (37-80); Nucleated Red Blood Cell % 0 /100 WBC (0); Platelet Count 140 Thou/mm3 (140-440); RDW Standard Deviation 47.7 fL (36.4-46.3); Red Blood Count 3.44 Miln/mm3 (4.00-5.20); White Blood Count 6.4 Thou/mm3 (3.6-11.0)
[2025-05-02 17:10] LABS: Alanine Aminotransferase 20 U/L (10-49); Albumin, Serum 4.3 gm/dL (3.4-4.8); Alkaline Phosphatase 128 U/L (46-116); Anion Gap 16 (7-16); Aspartate Amino Transferase 21 U/L (0-34); BUN/Creatinine Ratio 24 Ratio (12-20); Bilirubin,Total 0.5 mg/dL (0.3-1.2); Blood Urea Nitrogen 22 mg/dL (9-23); Carbon Dioxide 23.5 mMol/L (20.0-31.0); Chloride 99 mMol/L (98-107); Creatinine (Component) 0.9 mg/dL (0.6-1.3); Globulin 2.1 gm/dL (2.3-3.5); Osmolality,Calculated 299 (275-295); Potassium 4.6 mMol/L (3.4-5.1); Total Protein 6.4 gm/dL (5.7-8.2); eGFR > 60 See Note
[2025-05-02 17:19] LABS: Sodium 138 mMol/L (136-145)
[2025-05-03 07:37] LABS: Glucose 471 mg/dL (74-106)
[2025-05-03 09:17] LABS: Alanine Aminotransferase 17 U/L (10-49); Albumin, Serum 4.2 gm/dL (3.4-4.8); Albumin/Globulin Ratio 1.9 (1.2-2.2); Alkaline Phosphatase 131 U/L (46-116); Anion Gap 13 (7-16); Aspartate Amino Transferase 15 U/L (0-34); BUN/Creatinine Ratio 31 Ratio (12-20); Bilirubin,Total 0.5 mg/dL (0.3-1.2); Blood Urea Nitrogen 31 mg/dL (9-23); Carbon Dioxide 22.6 mMol/L (20.0-31.0); Chloride 99 mMol/L (98-107); Globulin 2.2 gm/dL (2.3-3.5); Osmolality,Calculated 303 (275-295); Potassium 4.6 mMol/L (3.4-5.1); Sodium 135 mMol/L (136-145); Total Protein 6.4 gm/dL (5.7-8.2); eGFR > 60 See Note
[2025-05-03 09:18] LABS: Glucose 593 mg/dL (74-106)
[2025-05-10 12:06] LABS: Basophils % (Auto) 0 % (0-2.5); Eosinophils % (Auto) 0 % (0-10); Hematocrit 31.4 % (36.0-46.0); Hemoglobin 10.3 g/dL (12.0-16.0); Immature Granulocytes % (Auto) 0 % (0-0); Immature Granulocytes Auto 0.02 Thou/mm3 (0.00-0.00); Lymphocytes # (Auto) 0.6 Thou/mm3 (1.0-4.8); Lymphocytes % (Auto) 11 % (10-50); Mean Corpuscular HGB Conc 32.8 g/dl (31.0-37.0); Mean Corpuscular Hemoglobin 30.2 pg (25.0-35.0); Mean Corpuscular Volume 92 fL (80-100); Monocytes # (Auto) 0.1 Thou/mm3 (0.0-0.8); Monocytes % (Auto) 2 % (0-12); Neutrophils # (Auto) 4.7 Thou/mm3 (1.8-7.7); Neutrophils % (Auto) 87 % (37-80); Nucleated Red Blood Cell % 0 /100 WBC (0); Platelet Count 154 Thou/mm3 (140-440); RDW Standard Deviation 47.2 fL (36.4-46.3); Red Blood Count 3.41 Miln/mm3 (4.00-5.20); White Blood Count 5.4 Thou/mm3 (3.6-11.0)
[2025-05-10 12:25] LABS: Alanine Aminotransferase 17 U/L (10-49); Albumin/Globulin Ratio 1.9 (1.2-2.2); Alkaline Phosphatase 98 U/L (46-116); Anion Gap 12 (7-16); Aspartate Amino Transferase 22 U/L (0-34); BUN/Creatinine Ratio 17 Ratio (12-20); Bilirubin,Total 0.5 mg/dL (0.3-1.2); Blood Urea Nitrogen 12 mg/dL (9-23); Calcium 8.8 mg/dL (8.3-10.6); Calcium (Corrected) 8.8 mg/dL (8.5-10.1); Carbon Dioxide 22.8 mMol/L (20.0-31.0); Chloride 105 mMol/L (98-107); Creatinine (Component) 0.7 mg/dL (0.6-1.3); Globulin 2.1 gm/dL (2.3-3.5); Glucose 190 mg/dL (74-106); Osmolality,Calculated 284 (275-295); Potassium 4.3 mMol/L (3.4-5.1); Sodium 140 mMol/L (136-145); Total Protein 6.1 gm/dL (5.7-8.2); eGFR > 60 See Note
== END 2025-05-29 23:59 | disposition home or self-care (01) ==
LOC: SCTC 09:45
PROVIDERS: PCP Internal Medicine; Referring Provider Internal Medicine; Visit Provider Internal Medicine Hematology & Oncology
DX: Z51.11 Encounter for antineoplastic chemotherapy (principal); C50.212 Malignant neoplasm of upper-inner quadrant of left female breast; Z17.0 Estrogen receptor positive status [ER+]; Z17.31 Human epidermal growth factor receptor 2 positive status; Z17.22 Progesterone receptor negative status
CPT/HCPCS: 36591; 80053; 84450; 85025; 96367; 96368; 96372; 96413; 96417; A4216; J1453; J1642; J2405; J2506; J7040; J7050; J9045; J9171; Q5117

== ENCOUNTER 2025-06-27 08:12 | Outpatient (RCR) | payer MEDICARE, BC, SELFPAY ==
[2025-05-30 16:28] LABS: Basophils # (Auto) 0.0 Thou/mm3 (0.0-0.2); Basophils % (Auto) 0 % (0-2.5); Eosinophils # (Auto) 0.0 Thou/mm3 (0.0-0.5); Eosinophils % (Auto) 0 % (0-10); Hematocrit 29.2 % (36.0-46.0); Hemoglobin 9.5 g/dL (12.0-16.0); Immature Granulocytes Auto 0.01 Thou/mm3 (0.00-0.00); Lymphocytes # (Auto) 1.6 Thou/mm3 (1.0-4.8); Lymphocytes % (Auto) 27 % (10-50); Mean Corpuscular HGB Conc 32.5 g/dl (31.0-37.0); Mean Corpuscular Hemoglobin 29.9 pg (25.0-35.0); Mean Corpuscular Volume 92 fL (80-100); Monocytes # (Auto) 0.4 Thou/mm3 (0.0-0.8); Monocytes % (Auto) 7 % (0-12); Neutrophils # (Auto) 3.8 Thou/mm3 (1.8-7.7); Neutrophils % (Auto) 65 % (37-80); Nucleated Red Blood Cell # 0.00 Thou/mm3 (0.00-0.00); Nucleated Red Blood Cell % 0 /100 WBC (0); Platelet Count 140 Thou/mm3 (140-440); RDW Standard Deviation 46.4 fL (36.4-46.3); Red Blood Count 3.18 Miln/mm3 (4.00-5.20); White Blood Count 5.8 Thou/mm3 (3.6-11.0)
[2025-05-30 16:43] LABS: Alanine Aminotransferase 28 U/L (10-49); Albumin, Serum 4.0 gm/dL (3.4-4.8); Albumin/Globulin Ratio 1.8 (1.2-2.2); Alkaline Phosphatase 122 U/L (46-116); Anion Gap 7 (7-16); Aspartate Amino Transferase 28 U/L (0-34); BUN/Creatinine Ratio 21 Ratio (12-20); Bilirubin,Total 0.4 mg/dL (0.3-1.2); Blood Urea Nitrogen 15 mg/dL (9-23); Calcium 9.1 mg/dL (8.3-10.6); Calcium (Corrected) 9.1 mg/dL (8.5-10.1); Carbon Dioxide 24.7 mMol/L (20.0-31.0); Chloride 107 mMol/L (98-107); Creatinine (Component) 0.7 mg/dL (0.6-1.3); Globulin 2.2 gm/dL (2.3-3.5); Glucose 245 mg/dL (74-106); Osmolality,Calculated 286 (275-295); Potassium 3.9 mMol/L (3.4-5.1); Sodium 139 mMol/L (136-145); Total Protein 6.2 gm/dL (5.7-8.2); eGFR > 60 See Note
--- NOTE | 2025-05-31 14:50 | CTCFLWUP_ITS ---
Patient: PARISH PRIDE : 1955 Page 2 of 2 FOLLOW UP NOTE DATE OF SERVICE: 05/31/2025 NAME: PARISH PRIDE ACCOUNT: [id number] : 1955 AGE: 70 INTERVAL HISTORY: Patient is 70-year-old woman with a diagnosis of invasive ductal carcinoma. Patient have completed 6 cycles of chemotherapy. Patient now on maintenance Herceptin. Patient is scheduled to see radiation oncologist. No nausea or vomiting. ONCOLOGY HISTORY: DIAGNOSIS: Malignant neoplasm of upper-outer quadrant of left female breast [ICD10] C50.412; Malignant neoplasm of overlapping sites of left female breast [ICD10] C50.812 DATE OF DIAGNOSIS: 09/01/2024 STAGE/TNM: IA T1b N0 M0 Invasive ductal carcinoma large focus 0.3 cm high-grade ER 1 to 10% progesterone negative HER2 3+ TREATMENT HISTORY: Care?Plan Start?Date Cycle Day Intent TCH?1 11/16/2024 1 21 Curative?(adjuvant) HISTORY OF PRESENT ILLNESS: 70-year-old female who was diagnosed with breast cancer. Patient had a lumpectomy done on 09/30/2024 and her final diagnosis showed HER2 positive breast cancer patient is here for follow-up. patient is yet to start chemotherapy. Nephew's wedding before starting chemotherapy. Patient's nephew's wedding is planned in December. Patient understand that delaying her chemotherapy start will likely affect her outcome. Patient says that she does not believe that she has breast cancer. She understands she had surgery and biopsy to prove she has cancer but she believes that she want to get it back. She agrees to come back in December 2024 after the wedding trip to [place] to resume her treatment here. Patient already had port catheter and echocardiogram completed. OTHER MEDICAL HISTORY/CONDITIONS: INVASIVE DUCTAL LEFT BREAST CANCER - DX 09/02/24 [facility] CATARACT SURGERY - EARLY 2023 DIABETES HTN PERIPHERAL NEUROPATHY PVD LEFT BREAST LUMPECTOMY WITH SENTINEL NODE BIOPSY 10/07/24 LEFT PARITIAL KNEE REPLACMENT - 6-7 YRS AGO CHOLECYSTECTOMY - 15 YRS AGO X 4 FAMILY HISTORY: Mother:?UTERINE?-?DX?AGE?60 Children: MAT 1ST COUSIN - UNKNOWM CANCER - DX AGE 55 Cancer History:?MAT 1ST COUSION - BREAST - DX 30'S; SOCIAL HISTORY: Occupational?History:?RETIRED Education?Level:?Completed High School Marital?Status:? Tobacco?Pack?per?Day:?0 Tobacco?Use:?DENIES ETOH?Use:?SOCIALLY Drug?Note:?DENIES Social?History?Note:?LIVES?WITH? [employer] HISTORY: Menarche?-?Age:?12 Menopause:?54 Hormone?Use:?DENIES :?4 Live?Births:?4 Age?1st?:?15 MEDICATIONS: 1. Asprin Ec Low Dose - 81 mg Daily 2. benazepril - 20 mg Daily 3. Compazine - 5 mg 1 tab Four times a day 4. Decadron - 1 tab Twice a Day 5. Emend - 125 mg (1)- 80 mg (2) 1 Pack Daily 6. gabapentin - 300 mg Daily 7. hydrocodone-acetaminophen - 5-325 mg 1 tab q6 8. Jardiance - 25 mg Daily 9. metformin - 1,000 mg Daily 10. Ozempic - 2 mg 11. Tresiba U-100 Insulin - 30 Units Daily 12. XyzaL - 5 mg Daily 13. Zofran - 8 mg 1 tab Three times a day Medications Last Reconciled by Eleanor Roa MA on 05/31/2025 ALLERGIES: ciprofloxacin REVIEW OF SYSTEMS: A complete 14-point review of systems was performed and is negative except as noted in interval history. PHYSICAL EXAMINATION: VITAL SIGNS: PAIN: 0 - No pain ECOG Performance Status: 0 - Asymptomatic and fully active GENERAL APPEARANCE: Appears well, in no apparent distress, appropriately interactive. HEENT: Normocephalic, no temporal wasting, normal conjunctiva, no scleral icterus, normal hearing, lips without lesions, neck normal range of motion. CARDIOVASCULAR: Not assessed. PULMONARY: Normal respiratory effort, no respiratory distress or use of accessory muscles, speaking in full sentences, no tachypnea. EXTREMITIES: No pedal edema or cyanosis. SKIN: Normal skin appearance. NEUROLOGIC: Alert and oriented x4. PSHYCHIATRIC: Appropriate affect, mood normal, behavior normal, intact thought and speech. LABORATORY DATA: I have personally reviewed and interpreted each of the patient?s relevant lab tests, abnormal findings are below: Date 6/11/25 7/1/25 ??WHITE?BLOOD?COUNT?(Thou/mm3) 5.4 5.8 ??RED?BLOOD?COUNT?(Miln/mm3) 3.41?L 3.18?L ??HEMOGLOBIN?(gm/dl) 10.3?L 9.5?L ??HEMATOCRIT?(%) 31.4?L 29.2?L ??PLATELET?COUNT?(Thou/mm3) 154 140 ??NEUTROPHILS?%,?AUTO?(%) 87?H 65 ??LYMPH?%,?AUTO?(%) 11 27 ??NEUTROPHILS,?AUTO?(Thou/mm3) 4.7 3.8 ??GLUCOSE,RANDOM?(mg/dL) 190?H 245?H ??BLOOD?UREA?NITROGEN?(mg/dL) 12 15 ??CREATININE?(mg/dL) 0.70 0.70 ??SODIUM?(mmol/L) 140 139 ??POTASSIUM?(mmol/L) 4.3 3.9 ??CHLORIDE?(mmol/L) 105 107 ??CrCl?(CandG)?(ml/min) 66.40 66.40 ??AST/SGOT?(Unit/L) ? 28 ??ALT/SGPT?(Unit/L) 17 28 ??ALKALINE?PHOSPHATASE?(Unit/L) 98 122?H ??BILIRUBIN,?TOTAL?(mg/dL) 0.5 0.4 ??PROTEIN?TOTAL?(gm/dl) 6.1 6.2 ??ALBUMIN,?SERUM?(gm/dl) 4.0 4.0 ??GLOBULIN?(gm/dl) 2.1?L 2.2?L ??ALBUMIN/GLOBULIN?RATIO 1.9 1.8 ??CALCIUM,?SERUM?(mg/dL) 8.8 9.1 ??CALCIUM?SERUM?(CORRECTED)?(mg/dL) 8.8 9.1 ASSESSMENT/PLAN: ER positive HER2 positive breast cancer 4 sentinel lymph nodes were negative for cancer Discussed adjuvant chemotherapy as tumor is more than 0.5 cm Patient is on TCH Continue Herceptin Can start radiation No need to hold Herceptin while on radiation Anatera negative Monitor with CBC CMP and Matera testing ORDERS: Order # Description [id number] Follow Up Appointment [id number] CBC + Comprehensive Metabolic Panel [id number] Lab Appointment [id number] Follow Up Appointment [id number] CBC + Comprehensive Metabolic Panel [id number] Lab Appointment [id number] Follow Up Appointment [id number] Cardiac ECHO [id number] CBC + Comprehensive Metabolic Panel [id number] Lab Appointment [id number] Cardiac ECHO [id number] Follow Up Appointment [id number] CBC + Comprehensive Metabolic Panel [id number] Lab Appointment [id number] Follow Up Appointment [id number] CBC + Comprehensive Metabolic Panel [id number] Lab Appointment [id number] Follow Up Appointment [id number] Cardiac ECHO [id number] CBC + Comprehensive Metabolic Panel [id number] Lab Appointment [id number] Cardiac ECHO [id number] Follow Up Appointment [id number] CBC + Comprehensive Metabolic Panel [id number] Lab Appointment [id number] Follow Up Appointment [id number] CBC + Comprehensive Metabolic Panel [id number] Lab Appointment [id number] Follow Up Appointment [id number] Cardiac ECHO [id number] CBC + Comprehensive Metabolic Panel [id number] Lab Appointment [id number] Cardiac ECHO [id number] Follow Up Appointment [id number] CBC + Comprehensive Metabolic Panel [id number] Lab Appointment [id number] Follow Up Appointment [id number] CBC + Comprehensive Metabolic Panel [id number] Lab Appointment RETURN TO CLINIC: I reviewed the diagnosis, prognosis, and recommended treatment/procedure options with the patient (and/or their legal client account representative), including the potential benefits, risks, side effects and alternative therapies. We also discussed the option of no treatment and the possibility of clinical trial participation, if applicable. All questions were addressed, and they demonstrated understanding. They provided informed consent to proceed with the proposed plan of care. BILLING AND COMPLIANCE: I reviewed external records from providers outside my specialty as summarized above. I spent a total of 50 minutes on this patient?s care on the day of their visit excluding time spent related to any billed procedures. This time includes time spent with the patient as well as time spent documenting in the medical record, reviewing patients records and tests, obtaining history, placing orders, communicating with other healthcare professionals, counseling the patient, family or caregiver, and/or care coordination for the diagnoses above. Electronically Signed by: Eren Peters MD T: 2:48 PM CC: Alejandro?Dory? PCP: Jose Ferrell Referring: Jose Ferrell This document was completed utilizing speech recognition software. Grammatical errors, random word insertions, pronoun errors, and incomplete sentences are an occasional consequence of this system due to software limitations, ambient noise, and hardware issues. Any formal questions or concerns about the content, text or information contained within the body of this dictation should be directly addressed to the provider for clarification.
[2025-06-21 10:33] LABS: Basophils # (Auto) 0.0 Thou/mm3 (0.0-0.2); Basophils % (Auto) 1 % (0-2.5); Eosinophils # (Auto) 0.0 Thou/mm3 (0.0-0.5); Eosinophils % (Auto) 0 % (0-10); Hematocrit 30.2 % (36.0-46.0); Hemoglobin 10.3 g/dL (12.0-16.0); Immature Granulocytes Auto 0.01 Thou/mm3 (0.00-0.00); Lymphocytes # (Auto) 1.4 Thou/mm3 (1.0-4.8); Lymphocytes % (Auto) 30 % (10-50); Mean Corpuscular HGB Conc 34.1 g/dl (31.0-37.0); Mean Corpuscular Hemoglobin 29.2 pg (25.0-35.0); Mean Corpuscular Volume 86 fL (80-100); Monocytes # (Auto) 0.3 Thou/mm3 (0.0-0.8); Monocytes % (Auto) 7 % (0-12); Neutrophils # (Auto) 2.9 Thou/mm3 (1.8-7.7); Neutrophils % (Auto) 62 % (37-80); Nucleated Red Blood Cell # 0.00 Thou/mm3 (0.00-0.00); Nucleated Red Blood Cell % 0 /100 WBC (0); Platelet Count 141 Thou/mm3 (140-440); RDW Standard Deviation 39.3 fL (36.4-46.3); Red Blood Count 3.53 Miln/mm3 (4.00-5.20); White Blood Count 4.7 Thou/mm3 (3.6-11.0)
[2025-06-21 11:02] LABS: Alanine Aminotransferase 14 U/L (10-49); Albumin, Serum 3.9 gm/dL (3.4-4.8); Albumin/Globulin Ratio 1.6 (1.2-2.2); Alkaline Phosphatase 120 U/L (46-116); Anion Gap 11 (7-16); Aspartate Amino Transferase 20 U/L (0-34); BUN/Creatinine Ratio 23 Ratio (12-20); Bilirubin,Total 0.5 mg/dL (0.3-1.2); Blood Urea Nitrogen 16 mg/dL (9-23); Calcium 8.9 mg/dL (8.3-10.6); Calcium (Corrected) 9.0 mg/dL (8.5-10.1); Carbon Dioxide 24.0 mMol/L (20.0-31.0); Chloride 107 mMol/L (98-107); Creatinine (Component) 0.7 mg/dL (0.6-1.3); Globulin 2.5 gm/dL (2.3-3.5); Glucose 211 mg/dL (74-106); Osmolality,Calculated 290 (275-295); Potassium 4.0 mMol/L (3.4-5.1); Sodium 142 mMol/L (136-145); Total Protein 6.4 gm/dL (5.7-8.2); eGFR > 60 See Note
== END 2025-06-29 23:59 | disposition home or self-care (01) ==
LOC: SCTC 08:12
PROVIDERS: Internal Medicine Hematology & Oncology; PCP Internal Medicine; Referring Provider Internal Medicine; Visit Provider Radiology Therapeutic Radiology
DX: Z51.11 Encounter for antineoplastic chemotherapy (principal); C50.212 Malignant neoplasm of upper-inner quadrant of left female breast; Z17.0 Estrogen receptor positive status [ER+]; Z17.22 Progesterone receptor negative status; Z17.31 Human epidermal growth factor receptor 2 positive status; Z90.12 Acquired absence of left breast and nipple
CPT/HCPCS: 36591; 77470; 80053; 85025; 96413; 99212; 99213; A4216; J1642; J7040; J7050; Q5117; G0463

== ENCOUNTER → 2025-07-09 | Outpatient (CLI) | payer MEDICARE, BC, SELFPAY ==
--- NOTE | 2025-07-09 09:30 | ECHO_ITS ---
Transthoracic Echo Report Ht (in): 61 Wt (lb): 126 Exam Location: Echo Lab Status: Preadmit Loan Interviewer Mortgage: [employer]one Indications: Procedure Performed: BP: 145 / 89 HR: 75 MEASUREMENTS (Male / Female) Normal Values 2D ECHO LV Diastolic Diameter PLAX 4.4 cm 4.2 - 5.9 / 3.9 - 5.3 cm LV Systolic Diameter PLAX 3.1 cm IVS Diastolic Thickness 1.1 cm 0.6 - 1.0 / 0.6 - 0.9 cm LVPW Diastolic Thickness 1.3 cm 0.6 - 1.0 / 0.6 - 0.9 cm LV Relative Wall Thickness 0.5 LVOT Diameter 1.9 cm LA Volume Index 43.3 cm?/m? 16 - 28 cm?/m? Ascending Aorta Diameter 3.3 cm M-MODE Aortic Root Diameter MM 2.2 cm LA Systolic Diameter MM 3.4 cm LA Ao Ratio MM 1.5 AV Cusp Separation MM 1.7 cm DOPPLER AV Peak Velocity 159.0 cm/s AV Peak Gradient 10.1 mmHg AV Mean Gradient 6.0 mmHg AV Velocity Time Integral 35.0 cm LVOT Peak Velocity 77.5 cm/s LVOT Peak Gradient 2.4 mmHg LVOT Velocity Time Integral 31.3 cm LVOT Cardiac Index 4218.1 cm?/min?m? AV Area Cont Eq vti 2.5 cm? AV Area Cont Eq pk 1.4 cm? MV Area PHT 3.4 cm? Mitral E Point Velocity 99.9 cm/s Mitral A Point Velocity 97.5 cm/s Mitral E to A Ratio 1.0 LV E' Lateral Velocity 9.9 cm/s Mitral E to LV E' Lateral Ratio 10.1 LV E' Septal Velocity 7.7 cm/s Mitral E to LV E' Septal Ratio 12.9 TR Peak Velocity 214.0 cm/s TR Peak Gradient 18.3 mmHg PV Peak Velocity 93.7 cm/s PV Peak Gradient 3.5 mmHg FINDINGS Left Ventricle Normal left ventricular size, wall thickness, systolic function with no obvious regional wall motion abnormalities. There is grade I diastolic dysfunction of the left ventricle (impaired relaxation pattern). The ejection fraction is visually estimated at 60-65%. Right Ventricle The right ventricle is normal in size and systolic function. Left Atrium The left atrium is normal by two-dimensional, color flow and Doppler imaging with no structural abnormalities, no thrombus formation present. Right Atrium The right atrium is normal by two-dimensional imaging, color flow and Doppler imaging with no structural abnormalities, no thrombus formation present. Atrial Septum The interatrial septum appears normal with no evidence of a shunt. Aorta The aorta is normal by two-dimensional, color flow and Doppler interrogation. Mitral Valve The mitral valve is normal by two-dimensional, color flow and Doppler interrogation. Trace to mild mitral regurgitation. Aortic Valve The aortic valve is trileaflet and normal by two-dimensional, color flow and Doppler interrogation. There is no significant aortic valve regurgitation. Tricuspid Valve The tricuspid valve is normal by two-dimensional, color flow and Doppler interrogation.there is trace tricuspid valve regurgitation. Pulmonic Valve The pulmonic valve is not well visualized. There is no significant pulmonic valve regurgitation. Vessels The pulmonary artery appears normal. The inferior vena cava pulmonary and hepatic veins appear normal. Pericardium The pericardium is normal by two-dimensional imaging. There is no significant pericardial effusion. CONCLUSIONS Indication Malignant neoplasm of upper- outer quadrant of left breast Normal left ventricular size and function. There is grade I diastolic dysfunction of the left ventricle. The ejection fraction is visually estimated at 60-65%. The right ventricle is normal in size and systolic function. Trace mitral and trace tricuspid regurgitation Linn Sanchez (Electronically Signed) Final Date: 09 July 2025 17:58
== END | disposition home or self-care (01) ==
LOC: SDIM 07-13 07:22
PROVIDERS: PCP Internal Medicine; Referring Provider Internal Medicine Hematology & Oncology; Visit Provider Internal Medicine Hematology & Oncology
DX: I08.1 Rheumatic disorders of both mitral and tricuspid valves (principal); C50.412 Malignant neoplasm of upper-outer quadrant of left female breast
CPT/HCPCS: 93306

== ENCOUNTER 2025-09-14 08:32 | Outpatient (RCR) | payer MEDICARE, BC, SELFPAY ==
--- NOTE | 2025-09-04 13:27 | CTCTSUMM_ITS ---
[facility] [address] [place], [place] [address] Treatment Summary Date: 09/04/2025 MR#: [id number] Name: PARISH PRIDE : 1955 Dx: C50.412 Referring Physician: Liana Fields MD (A) Diagnosis: [ICD10] C50.412 Malignant neoplasm of upper-outer quadrant of left female breast; [ICD10] C50.812 Malignant neoplasm of overlapping sites of left female breast IA (B) Aim of Treatment: Curative (adjuvant) (C) Concomitant Chemotherapy: Yes (D) Radiation Dates: 08/01/2025 through 08/28/2025 Treatment Prescription breast boost Electron boost 12 MeV E 1,000 cGy 5 200 cGy Approved L breast 2 FIELD SEG 6 MV PHOT 3,990 cGy 15 266 cGy Approved (E) All quigley were treated using customized MLC Blocks (F) Finding at Discharge: Patient tolerated well with minor fatigue and skin effects. (G) Discharge Instructions and F/U Appt was given: The patient was also advised to continue follow-up with Dr. Peters and primary care physician: cc: Jose Fields MD Electronically signed by: Alejandro Connors MD, DABR 09/04/2025 1:25 PM
--- NOTE | 2025-09-04 14:01 | CTCFLWUP_ITS ---
Patient: PARISH PRIDE : 1955 Page 3 of 5 FOLLOW UP NOTE DATE OF SERVICE: 09/04/2025 NAME: PARISH PRIDE ACCOUNT: [id number] : 1955 AGE: 70 INTERVAL HISTORY: Patient is 70-year-old woman with a diagnosis of invasive ductal carcinoma. Patient have completed 6 cycles of chemotherapy. Patient completed adjuvant radiation and healed well. Patient is tolerating Herceptin well. Patient have ER positive HER2 positive breast cancer and was started on Arimidex. Patient also takes her calcium and vitamin D. For vaginal dryness patient was prescribed vaginal estrogen cream. Also gave over the counter vaginal lubricants and vaginal dilator to help her with sexual activity. Return in 2 months with labs and echocardiogram ONCOLOGY HISTORY:?[facility] On[facility] Hx? DIAGNOSIS: Malignant neoplasm of upper-outer quadrant of left female breast [ICD10] C50.412; Malignant neoplasm of overlapping sites of left female breast [ICD10] C50.812 DATE OF DIAGNOSIS: 09/01/2024 STAGE/TNM: IA T1b N0 M0 Invasive ductal carcinoma large focus 0.3 cm high-grade ER 1 to 10% progesterone negative HER2 3+ TREATMENT HISTORY: Care?Plan Start?Date Cycle Day Intent TCH?1 11/16/2024 1 21 Curative?(adjuvant) HISTORY OF PRESENT ILLNESS: 70-year-old female who was diagnosed with breast cancer. Patient had a lumpectomy done on 09/30/2024 and her final diagnosis showed HER2 positive breast cancer patient is here for follow-up. patient is yet to start chemotherapy. Nephew's wedding before starting chemotherapy. Patient's nephew's wedding is planned in December. Patient understand that delaying her chemotherapy start will likely affect her outcome. Patient says that she does not believe that she has breast cancer. She understands she had surgery and biopsy to prove she has cancer but she believes that she want to get it back. She agrees to come back in December 2024 after the wedding trip to [place] to resume her treatment here. Patient already had port catheter and echocardiogram completed. OTHER MEDICAL HISTORY/CONDITIONS: INVASIVE DUCTAL LEFT BREAST CANCER - DX 09/02/24 R[facility]ARD CATARACT SURGERY - EARLY 2023 DIABETES HTN PERIPHERAL NEUROPATHY PVD LEFT BREAST LUMPECTOMY WITH SENTINEL NODE BIOPSY 10/07/24 LEFT PARITIAL KNEE REPLACMENT - 6-7 YRS AGO CHOLECYSTECTOMY - 15 YRS AGO X 4 FAMILY HISTORY: Mother:?UTERINE?-?DX?AGE?60 Children: MAT 1ST COUSIN - UNKNOWM CANCER - DX AGE 55 Cancer History:?MAT 1ST COUSION - BREAST - DX 30'S; SOCIAL HISTORY: Occupational?History:?RETIRED Education?Level:?Completed High School Marital?Status:? Tobacco?Pack?per?Day:?0 Tobacco?Use:?DENIES ETOH?Use:?SOCIALLY Drug?Note:?DENIES Social?History?Note:?LIVES?WITH? [employer] HISTORY: Menarche?-?Age:?12 Menopause:?54 Hormone?Use:?DENIES :?4 Live?Births:?4 Age?1st?:?15 MEDICATIONS: 1. Asprin Ec Low Dose - 81 mg Daily 2. benazepril - 20 mg Daily 3. Compazine - 5 mg 1 tab Four times a day 4. Decadron - 1 tab Twice a Day 5. Emend - 125 mg (1)- 80 mg (2) 1 Pack Daily 6. gabapentin - 300 mg Daily 7. hydrocodone-acetaminophen - 5-325 mg 1 tab q6 8. Jardiance - 25 mg Daily 9. metformin - 1,000 mg Daily 10. Ozempic - 2 mg 11. Tresiba U-100 Insulin - 30 Units Daily 12. XyzaL - 5 mg Daily 13. Zofran - 8 mg 1 tab Three times a day?Palabra Meds? Medications Last Reconciled by Patricia Ferraro MD on 09/04/2025 ALLERGIES: ciprofloxacin REVIEW OF SYSTEMS: A complete 14-point review of systems was performed and is negative except as noted in interval history. PHYSICAL EXAMINATION:?[facility] PE? VITAL SIGNS: PAIN: 0 - No pain ECOG Performance Status: 0 - Asymptomatic and fully active GENERAL APPEARANCE: Appears well, in no apparent distress, appropriately interactive. HEENT: Normocephalic, no temporal wasting, normal conjunctiva, no scleral icterus, normal hearing, lips without lesions, neck normal range of motion. CARDIOVASCULAR: Not assessed. PULMONARY: Normal respiratory effort, no respiratory distress or use of accessory muscles, speaking in full sentences, no tachypnea. EXTREMITIES: No pedal edema or cyanosis. SKIN: Normal skin appearance. NEUROLOGIC: Alert and oriented x4. PSHYCHIATRIC: Appropriate affect, mood normal, behavior normal, intact thought and speech. LABORATORY DATA: I have personally reviewed and interpreted each of the patient?s relevant lab tests, abnormal findings are below: Date 08/02/25 08/23/25 ??WHITE?BLOOD?COUNT?(Thou/mm3) 4.0 3.9 ??RED?BLOOD?COUNT?(Miln/mm3) 4.03 3.98?L ??HEMOGLOBIN?(gm/dl) 10.9?L 10.8?L ??HEMATOCRIT?(%) 34.2?L 33.3?L ??PLATELET?COUNT?(Thou/mm3) 168 149 ??NEUTROPHILS?%,?AUTO?(%) 55 72 ??LYMPH?%,?AUTO?(%) 37 18 ??NEUTROPHILS,?AUTO?(Thou/mm3) 2.2 2.8 ??GLUCOSE,RANDOM?(mg/dL) 198?H 171?H ??BLOOD?UREA?NITROGEN?(mg/dL) 10 10 ??CREATININE?(mg/dL) 0.80 0.70 ??SODIUM?(mmol/L) 140 142 ??POTASSIUM?(mmol/L) 3.8 3.8 ??CHLORIDE?(mmol/L) 104 108?H ??CrCl?(CandG)?(ml/min) 57.27 67.04 ??AST/SGOT?(Unit/L) 22 29 ??ALT/SGPT?(Unit/L) 17 27 ??ALKALINE?PHOSPHATASE?(Unit/L) 117?H 107 ??BILIRUBIN,?TOTAL?(mg/dL) 0.5 0.6 ??PROTEIN?TOTAL?(gm/dl) 6.7 6.7 ??ALBUMIN,?SERUM?(gm/dl) 4.2 4.2 ??GLOBULIN?(gm/dl) 2.5 2.5 ??ALBUMIN/GLOBULIN?RATIO 1.7 1.7 ??CALCIUM,?SERUM?(mg/dL) 9.7 9.4 ??CALCIUM?SERUM?(CORRECTED)?(mg/dL) 9.7 9.4 ASSESSMENT/PLAN:?Federico Peters Assessment/Plan? ER positive HER2 positive breast cancer 4 sentinel lymph nodes were negative for cancer Discussed adjuvant chemotherapy as tumor is more than 0.5 cm Patient is on TCH Completed radiation Continue Herceptin Started Arimidex Take vitamin D3 daily Follow-up on bone density Vaginal dryness Estrogen cream given to be used 2-3 times a week Use of lubricants during sex Advised to use vaginal dilators to help her relax during sexual activity ORDERS: Order # Description [id number] Follow Up Appointment [id number] Cardiac ECHO [id number] CBC + Comprehensive Metabolic Panel [id number] Lab Appointment [id number] Cardiac ECHO [id number] Follow Up Appointment [id number] CBC + Comprehensive Metabolic Panel [id number] Lab Appointment [id number] Follow Up Appointment [id number] CBC + Comprehensive Metabolic Panel [id number] Lab Appointment [id number] Follow Up Appointment [id number] Cardiac ECHO [id number] CBC + Comprehensive Metabolic Panel [id number] Lab Appointment [id number] Cardiac ECHO [id number] Follow Up Appointment [id number] CBC + Comprehensive Metabolic Panel [id number] Lab Appointment [id number] Follow Up Appointment [id number] CBC + Comprehensive Metabolic Panel [id number] Lab Appointment RETURN TO CLINIC: I reviewed the diagnosis, prognosis, and recommended treatment/procedure options with the patient (and/or their legal sales representative health insurance), including the potential benefits, risks, side effects and alternative therapies. We also discussed the option of no treatment and the possibility of clinical trial participation, if applicable. All questions were addressed, and they demonstrated understanding. They provided informed consent to proceed with the proposed plan of care. BILLING AND COMPLIANCE: I reviewed external records from providers outside my specialty as summarized above. I spent a total of 50 minutes on this patient?s care on the day of their visit excluding time spent related to any billed procedures. This time includes time spent with the patient as well as time spent documenting in the medical record, reviewing patients records and tests, obtaining history, placing orders, communicating with other healthcare professionals, counseling the patient, family or caregiver, and/or care coordination for the diagnoses above. Electronically Signed by: Eren Peters MD T: 1:59 PM CC: Cresencio,? PCP: Jose Ferrell Referring: Jose Ferrell This document was completed utilizing speech recognition software. Grammatical errors, random word insertions, pronoun errors, and incomplete sentences are an occasional consequence of this system due to software limitations, ambient noise, and hardware issues. Any formal questions or concerns about the content, text or information contained within the body of this dictation should be directly addressed to the provider for clarification.
[2025-09-13 15:09] LABS: Basophils # (Auto) 0.0 Thou/mm3 (0.0-0.2); Basophils % (Auto) 1 % (0-2.5); Eosinophils # (Auto) 0.1 Thou/mm3 (0.0-0.5); Eosinophils % (Auto) 2 % (0-10); Hematocrit 33.4 % (36.0-46.0); Hemoglobin 11.0 g/dL (12.0-16.0); Immature Granulocytes Auto 0.01 Thou/mm3 (0.00-0.00); Lymphocytes # (Auto) 0.9 Thou/mm3 (1.0-4.8); Lymphocytes % (Auto) 30 % (10-50); Mean Corpuscular HGB Conc 32.9 g/dl (31.0-37.0); Mean Corpuscular Hemoglobin 27.2 pg (25.0-35.0); Mean Corpuscular Volume 83 fL (80-100); Monocytes # (Auto) 0.2 Thou/mm3 (0.0-0.8); Monocytes % (Auto) 7 % (0-12); Neutrophils # (Auto) 1.8 Thou/mm3 (1.8-7.7); Neutrophils % (Auto) 59 % (37-80); Nucleated Red Blood Cell # 0.00 Thou/mm3 (0.00-0.00); Nucleated Red Blood Cell % 0 /100 WBC (0); Platelet Count 144 Thou/mm3 (140-440); RDW Standard Deviation 41.0 fL (36.4-46.3); Red Blood Count 4.04 Miln/mm3 (4.00-5.20); White Blood Count 3.0 Thou/mm3 (3.6-11.0)
[2025-09-13 15:28] LABS: Alanine Aminotransferase 24 U/L (10-49); Albumin, Serum 4.3 gm/dL (3.4-4.8); Albumin/Globulin Ratio 1.7 (1.2-2.2); Alkaline Phosphatase 117 U/L (46-116); Anion Gap 12 (7-16); Aspartate Amino Transferase 30 U/L (0-34); BUN/Creatinine Ratio 15 Ratio (12-20); Bilirubin,Total 0.4 mg/dL (0.3-1.2); Blood Urea Nitrogen 16 mg/dL (9-23); Calcium 9.2 mg/dL (8.3-10.6); Calcium (Corrected) 9.2 mg/dL (8.5-10.1); Carbon Dioxide 25.1 mMol/L (20.0-31.0); Chloride 103 mMol/L (98-107); Creatinine (Component) 1.1 mg/dL (0.6-1.3); Globulin 2.5 gm/dL (2.3-3.5); Glucose 300 mg/dL (74-106); Osmolality,Calculated 291 (275-295); Potassium 3.9 mMol/L (3.4-5.1); Sodium 140 mMol/L (136-145); Total Protein 6.8 gm/dL (5.7-8.2); eGFR 54 See Note
== END 2025-09-29 23:59 | disposition home or self-care (01) ==
LOC: SCTC 08:32
PROVIDERS: Internal Medicine Hematology & Oncology; PCP Internal Medicine; Referring Provider Internal Medicine; Visit Provider Radiology Therapeutic Radiology
DX: Z51.11 Encounter for antineoplastic chemotherapy (principal); C50.212 Malignant neoplasm of upper-inner quadrant of left female breast; Z17.0 Estrogen receptor positive status [ER+]; Z17.22 Progesterone receptor negative status; Z17.31 Human epidermal growth factor receptor 2 positive status; Z92.3 Personal history of irradiation; Z79.811 Long term (current) use of aromatase inhibitors
CPT/HCPCS: 36591; 80053; 85025; 96413; 99212; A4216; J1642; J7040; J7050; Q5117; G0463

== ENCOUNTER 2025-10-05 08:05 | Outpatient (RCR) | payer MEDICARE, BC, SELFPAY ==
[2025-10-04 15:41] LABS: Alanine Aminotransferase 27 U/L (10-49); Albumin, Serum 4.4 gm/dL (3.4-4.8); Albumin/Globulin Ratio 2.0 (1.2-2.2); Alkaline Phosphatase 125 U/L (46-116); Anion Gap 13 (7-16); Aspartate Amino Transferase 34 U/L (0-34); BUN/Creatinine Ratio 12 Ratio (12-20); Bilirubin,Total 0.4 mg/dL (0.3-1.2); Blood Urea Nitrogen 11 mg/dL (9-23); Calcium 9.4 mg/dL (8.3-10.6); Calcium (Corrected) 9.4 mg/dL (8.5-10.1); Carbon Dioxide 24.6 mMol/L (20.0-31.0); Chloride 103 mMol/L (98-107); Creatinine (Component) 0.9 mg/dL (0.6-1.3); Globulin 2.2 gm/dL (2.3-3.5); Osmolality,Calculated 297 (275-295); Potassium 3.7 mMol/L (3.4-5.1); Sodium 141 mMol/L (136-145); Total Protein 6.6 gm/dL (5.7-8.2); eGFR > 60 See Note
[2025-10-04 15:46] LABS: Glucose 413 mg/dL (74-106)
[2025-10-04 16:57] LABS: Basophils # (Auto) 0.0 Thou/mm3 (0.0-0.2); Basophils % (Auto) 1 % (0-2.5); Eosinophils # (Auto) 0.0 Thou/mm3 (0.0-0.5); Eosinophils % (Auto) 0 % (0-10); Hematocrit 32.8 % (36.0-46.0); Hemoglobin 11.0 g/dL (12.0-16.0); Immature Granulocytes Auto 0.00 Thou/mm3 (0.00-0.00); Lymphocytes # (Auto) 0.8 Thou/mm3 (1.0-4.8); Lymphocytes % (Auto) 27 % (10-50); Mean Corpuscular HGB Conc 33.5 g/dl (31.0-37.0); Mean Corpuscular Hemoglobin 27.6 pg (25.0-35.0); Mean Corpuscular Volume 82 fL (80-100); Monocytes # (Auto) 0.3 Thou/mm3 (0.0-0.8); Monocytes % (Auto) 9 % (0-12); Neutrophils # (Auto) 1.8 Thou/mm3 (1.8-7.7); Neutrophils % (Auto) 63 % (37-80); Nucleated Red Blood Cell # 0.00 Thou/mm3 (0.00-0.00); Nucleated Red Blood Cell % 0 /100 WBC (0); Platelet Count 141 Thou/mm3 (140-440); RDW Standard Deviation 40.7 fL (36.4-46.3); Red Blood Count 3.98 Miln/mm3 (4.00-5.20); White Blood Count 2.9 Thou/mm3 (3.6-11.0)
[2025-10-05 10:02] LABS: Vitamin D 25 Hydroxy Total 35.5 ng/mL (7.3-40.2)
[2025-10-05 10:03] LABS: Free T4 (Free Thyroxine) 1.06 ng/dL (0.89-1.76); Thyroid Stimulating Hormone 0.75 uIU/mL (0.55-4.78)
[2025-10-05 10:07] LABS: Cardiac Risk Estimate 1.9 RATIO (3.7-5.6); Cholesterol 126 mg/dL (132-200); HDL Cholesterol 65 mg/dL (40-60); LDL Cholesterol,Calculated 47 mg/dL (0-130); Triglycerides 71 mg/dL (30-150)
[2025-10-05 10:15] LABS: Glucose Estimated Average 232 mg/dL (80-131); Hemoglobin A1C 9.7 % Hgb (4.8-6.0)
== END 2025-10-29 23:59 | disposition home or self-care (01) ==
LOC: SCTC 08:05
PROVIDERS: Internal Medicine Hematology & Oncology; PCP Internal Medicine; Referring Provider Internal Medicine; Visit Provider Radiology Therapeutic Radiology
DX: Z51.11 Encounter for antineoplastic chemotherapy (principal); C50.212 Malignant neoplasm of upper-inner quadrant of left female breast; Z17.0 Estrogen receptor positive status [ER+]; Z17.22 Progesterone receptor negative status; Z17.31 Human epidermal growth factor receptor 2 positive status; N89.8 Other specified noninflammatory disorders of vagina
CPT/HCPCS: 36591; 80053; 80061; 82306; 83036; 84439; 84443; 85025; 96413; A4216; J1642; J7040; J7050; Q5117

== ENCOUNTER → 2025-10-13 | Outpatient (CLI) | payer MEDICARE, BC, SELFPAY ==
--- NOTE | 2025-10-13 10:30 | ECHO_ITS ---
Patient Info Name: Tanika Qiuroga Age: 70 years : 1955 Gender: Female Ht: 155 cm Wt: 58 kg BSA: 1.58 m2 Heart Rhythm: Tachycardia Exam Date: 10/13/2025 10:35 AM Admit Date: 10/13/2025 Site: [facility] Patient Status: O Technical Quality: Poor Exam Type: CA echo doppler complete Reason for Poor Study: poor echocardiographic windows Psychologist Chief: Purvi Branch Ordering Physician: Eren Peters Referring Physician: Eren Peters Study Info Indications Malignant neoplasm of upper-outer quadrant of left female br - Primary Location: SDIM Left Ventricular Outflow Tract Name Value Normal LVOT 2D LVOT Diameter 1.7 cm LVOT Doppler LVOT Peak Velocity 98 cm/s LVOT Mean Gradient 2 mmHg LVOT VTI 23 cm LVOT VTI/AV VTI Ratio 0.8 LVOT Stroke Volume 52 ml Pulmonic Valve Name Value Normal PV Doppler PV Peak Velocity 110 cm/s Mitral Valve Name Value Normal MV Doppler MV Decel [place] 319 cm/s2 MV PHT 64 ms MV Area (PHT) 3.4 cm2 4.0-5.0 MV Diastolic Function MV E Peak Velocity 71 cm/s MV A Peak Velocity 103 cm/s MV E/A 0.7 MV Annular TDI MV Septal e' Velocity 8.3 cm/s MV E/e' (Septal) 8.6 MV Lateral e' Velocity 11.9 cm/s MV E/e' (Lateral) 5.9 MV e' Average 10.09 cm/s MV E/e' (Average) 7.3 Tricuspid Valve Name Value Normal Estimated PAP/RSVP RA Pressure 5 mmHg <=5 TV Annular TDI TV Lateral Bebe s' Velocity 15.2 cm/s >=9.5 Aorta Name Value Normal Ascending Aorta Ao Root Diameter (2D) 2.7 cm Ao Root Diam Index (2D) 1.7 cm/m2 Aortic Valve Name Value Normal AV Doppler AV Peak Velocity 129 cm/s AV Mean Gradient 4 mmHg AV VTI 30 cm AV Area (Cont Eq VTI) 1.7 cm2 >=3.0 AV Area (Cont Eq Temo) 1.7 cm2 AV DI (Temo) 0.76 AV Regurgitation 2D LVOT Area 2.3 cm2 Ventricles Name Value Normal LV Dimensions 2D/MM IVS Diastolic Thickness (2D) 0.6 cm 0.6-0.9 LVID Diastole (2D) 4.2 cm 3.8-5.2 LVIW Diastolic Thickness (2D) 1.0 cm 0.6-0.9 LVID Systole (2D) 2.6 cm 2.2-3.5 LVOT Diameter 1.7 cm LV Mass (2D Cubed) 101.29 g 67.00-162.00 LV Mass Index (2D Cubed) 64 g/m2 43-95 Relative Wall Thickness (2D) 0.48 <=0.42 IVS/LVIW Diastolic Thickness (2D) 0.60 0.00-1.50 LV Fractional Shortening/Ejection Fraction 2D/MM LV Fractional Shortening (2D) 38 % 27-45 LV EF (2D Teichholz) 69 % LV Diastolic Volume (4C MOD) 79 ml LV EF (4C MOD) 61 % LV Diastolic Volume (2C MOD) 52 ml LV EF (2C MOD) 54 % LV Diastolic Volume (BP MOD) 69 ml 46-106 LV Diastolic Volume Index (BP MOD) 43 ml/m2 29-61 LV Systolic Volume (BP MOD) 28 ml 14-42 LV Systolic Volume Index (BP MOD) 17 ml/m2 8-24 LV EF (BP MOD) 60 % 54-74 LV Diastolic Length (4C) 6.9 cm LV Systolic Length (4C) 5.3 cm LV Stroke Volume (4C MOD) 48 ml RV Dimensions 2D/MM TV Lateral Bebe s' Velocity 15.2 cm/s >=9.5 Atria Name Value Normal LA Dimensions LA Volume (4C A-L) 32 ml LA Volume (BP A-L) 35 ml Left Ventricle Left ventricular chamber dimension is normal. Left ventricular systolic function is normal with an ejection fraction by Biplane Method of Discs of 60 %. There is normal geometry noted in the left ventricle. Left ventricular segmental wall motion is normal. There is grade I diastolic dysfunction in the left ventricle. Right Ventricle Right ventricular chamber dimension is normal. Right ventricular systolic function is normal. Left Atrium Left atrial chamber dimension is normal. Right Atrium Right atrial chamber dimension is normal. Aortic Valve The aortic valve is trileaflet. There is no aortic valve sclerosis. There is no aortic valve stenosis with a peak velocity of 129 cm/s, mean gradient of 4 mmHg, and aortic valve area of 1.7 cm2. There is no aortic valve regurgitation. Pulmonic Valve The pulmonic valve is normal. There is no pulmonic valve stenosis. There is no pulmonic regurgitation. Mitral Valve The mitral valve has normal leaflets. There is no mitral valve stenosis. There is trace mitral valve regurgitation. Tricuspid Valve The tricuspid valve leaflets are normal. There is no tricuspid valve stenosis. There is trace tricuspid valve regurgitation. Unable to estimate pulmonary artery systolic pressure due to inadequate tricuspid regurgitant envelope. Pericardium/Pleural The pericardium appears normal. There is no pericardial effusion. No pleural effusion visualized. Inferior Vena Cava Normal inferior vena cava with >50% collapse upon inspiration consistent with normal right atrial pressure, 5 mmHg. Aorta The aortic measurements are indexed to age and body surface area. Summary 1. Left ventricle size is normal and systolic function is normal. Estimated ejection fraction is 55-60%. There is grade I diastolic dysfunction. There is normal geometry noted. 2. Normal RV size and function. 3. There is trace mitral valve regurgitation. 4. There is trace tricuspid valve regurgitation. Report Signatures Finalized by Misael Washington on 10/13/2025 06:24 PM
== END | disposition home or self-care (01) ==
LOC: SDIM 10:06
PROVIDERS: PCP Pediatrics; Referring Provider Internal Medicine Hematology & Oncology; Visit Provider Internal Medicine Hematology & Oncology
DX: I08.1 Rheumatic disorders of both mitral and tricuspid valves (principal); I50.30 Unspecified diastolic (congestive) heart failure; C50.812 Malignant neoplasm of overlapping sites of left female breast; C50.412 Malignant neoplasm of upper-outer quadrant of left female breast
CPT/HCPCS: 93306

== ENCOUNTER → 2025-10-19 | Outpatient (CLI) | payer MEDICARE, BC, SELFPAY ==
--- NOTE | 2025-10-19 12:00 | XR_ITS ---
Examination: Bone densitometry Date and time of exam: October 19, 2025, 1217 hours INDICATIONS: Menopause age 54, diabetic, personal history left breast cancer, vitamin D 2 years Technique: Lumbar spine and hip total bone mineralization values of an calculated. Peak reference and age match control results have been displayed. Findings: Lumbar spine total bone mineralization is 1.039 gm/cm2. This is 0.1 standard deviations below peak reference. This is 2.1 standard deviations above age-matched controls. Hip total bone mineralization is 0.674 gm/cm2 This is 2.2 standard deviations below peak reference. This is 0.6 standard deviations below age-matched controls Impression: There is normal mineralization based on lumbar spine measurements. There is osteoporosis based on hip measurements
== END | disposition home or self-care (01) ==
PROVIDERS: PCP Internal Medicine; Referring Provider Internal Medicine Hematology & Oncology; Visit Provider Internal Medicine Hematology & Oncology
DX: M81.0 Age-related osteoporosis without current pathological fracture (principal); C50.412 Malignant neoplasm of upper-outer quadrant of left female breast; C50.812 Malignant neoplasm of overlapping sites of left female breast
CPT/HCPCS: 77080

== ENCOUNTER 2025-11-10 07:55 | Day surgery (SDC) | payer MEDICARE, BC, SELFPAY ==
[2025-11-09 13:22] VITALS: BMI 23.6
[2025-11-10] VITALS (10 sets, daily range): BP systolic 108–147; BP diastolic 53–92; PULSE 72–94; RESP 12–23; TEMP 36.6–36.8; O2SAT 98–100; BMI 23.4
[2025-11-10] MEDS: SODIUM CHLORIDE 0.9% 500 ML 500 ML 20 ML IV (09:58)
[2025-11-10] MEDS: MIDAZOLAM INJ 1 MG/ML VIAL 2 ML (ASD USE ONLY) 2 MG IVP (10:00)
[2025-11-10] MEDS: fentaNYL CIT INJ 50 mCg/ML AMP 2ML (ASD USE ONLY) IVP (10:00)
--- NOTE | 2025-11-10 11:09 | SUR.PHASEII ---
1145 Pt more awake and alert. Denies oain or N/V. Abd remains soft. Pt passing flatus. Carlos PO fluids. 1105 Pt assessment unchanged. No complaints. Amb with steady gait. Able to dress self. Pt and family given dc instructions. Both state understanding. Pt meets dc criteria-to home.
== END 2025-11-10 11:05 | disposition home or self-care (01) ==
PROVIDERS: PCP Internal Medicine; Referring Provider Specialist; Visit Provider Specialist
PROC: 0DBE8ZX Excision of Large Intestine, Via Natural or Artificial Opening Endoscopic, Diagnostic (ICD-10-PCS; CPT 45380; principal; 2025-11-10 09:00)
DX: Z12.11 Encounter for screening for malignant neoplasm of colon (principal); K64.1 Second degree hemorrhoids; K57.30 Diverticulosis of large intestine without perforation or abscess without bleeding
CPT/HCPCS: G0121; A4649; J1200; J2250; J3010; J7999

== ENCOUNTER 2025-11-28 07:25 | Outpatient (RCR) | payer MEDICARE, BC, SELFPAY ==
[2025-11-01 13:04] LABS: Basophils # (Auto) 0.0 Thou/mm3 (0.0-0.2); Basophils % (Auto) 1 % (0-2.5); Eosinophils # (Auto) 0.0 Thou/mm3 (0.0-0.5); Eosinophils % (Auto) 1 % (0-10); Hematocrit 35.6 % (36.0-46.0); Hemoglobin 11.5 g/dL (12.0-16.0); Immature Granulocytes Auto 0.01 Thou/mm3 (0.00-0.00); Lymphocytes # (Auto) 0.9 Thou/mm3 (1.0-4.8); Lymphocytes % (Auto) 23 % (10-50); Mean Corpuscular HGB Conc 32.3 g/dl (31.0-37.0); Mean Corpuscular Hemoglobin 26.9 pg (25.0-35.0); Mean Corpuscular Volume 83 fL (80-100); Monocytes # (Auto) 0.3 Thou/mm3 (0.0-0.8); Monocytes % (Auto) 9 % (0-12); Neutrophils # (Auto) 2.7 Thou/mm3 (1.8-7.7); Neutrophils % (Auto) 67 % (37-80); Nucleated Red Blood Cell # 0.00 Thou/mm3 (0.00-0.00); Nucleated Red Blood Cell % 0 /100 WBC (0); Platelet Count 145 Thou/mm3 (140-440); RDW Standard Deviation 40.9 fL (36.4-46.3); Red Blood Count 4.27 Miln/mm3 (4.00-5.20); White Blood Count 4.0 Thou/mm3 (3.6-11.0)
[2025-11-01 13:27] LABS: Alanine Aminotransferase 14 U/L (10-49); Albumin, Serum 4.7 gm/dL (3.4-4.8); Albumin/Globulin Ratio 1.6 (1.2-2.2); Alkaline Phosphatase 112 U/L (46-116); Anion Gap 9 (7-16); Aspartate Amino Transferase 22 U/L (0-34); BUN/Creatinine Ratio 19 Ratio (12-20); Bilirubin,Total 0.6 mg/dL (0.3-1.2); Blood Urea Nitrogen 13 mg/dL (9-23); Calcium 9.2 mg/dL (8.3-10.6); Calcium (Corrected) 9.2 mg/dL (8.5-10.1); Carbon Dioxide 25.6 mMol/L (20.0-31.0); Chloride 106 mMol/L (98-107); Creatinine (Component) 0.7 mg/dL (0.6-1.3); Globulin 2.9 gm/dL (2.3-3.5); Glucose 154 mg/dL (74-106); Osmolality,Calculated 284 (275-295); Potassium 3.8 mMol/L (3.4-5.1); Sodium 141 mMol/L (136-145); Total Protein 7.6 gm/dL (5.7-8.2); eGFR > 60 See Note
[2025-11-27 12:18] LABS: Basophils # (Auto) 0.0 Thou/mm3 (0.0-0.2); Basophils % (Auto) 1 % (0-2.5); Eosinophils # (Auto) 0.0 Thou/mm3 (0.0-0.5); Eosinophils % (Auto) 1 % (0-10); Hematocrit 33.7 % (36.0-46.0); Hemoglobin 10.9 g/dL (12.0-16.0); Immature Granulocytes Auto 0.01 Thou/mm3 (0.00-0.00); Lymphocytes # (Auto) 0.9 Thou/mm3 (1.0-4.8); Lymphocytes % (Auto) 17 % (10-50); Mean Corpuscular HGB Conc 32.3 g/dl (31.0-37.0); Mean Corpuscular Hemoglobin 27.3 pg (25.0-35.0); Mean Corpuscular Volume 84 fL (80-100); Monocytes # (Auto) 0.3 Thou/mm3 (0.0-0.8); Monocytes % (Auto) 7 % (0-12); Neutrophils # (Auto) 3.7 Thou/mm3 (1.8-7.7); Neutrophils % (Auto) 75 % (37-80); Nucleated Red Blood Cell # 0.00 Thou/mm3 (0.00-0.00); Nucleated Red Blood Cell % 0 /100 WBC (0); Platelet Count 145 Thou/mm3 (140-440); RDW Standard Deviation 39.8 fL (36.4-46.3); Red Blood Count 4.00 Miln/mm3 (4.00-5.20); White Blood Count 5.0 Thou/mm3 (3.6-11.0)
[2025-11-27 12:43] LABS: Alanine Aminotransferase 23 U/L (10-49); Albumin, Serum 4.1 gm/dL (3.4-4.8); Albumin/Globulin Ratio 1.3 (1.2-2.2); Alkaline Phosphatase 99 U/L (46-116); Anion Gap 11 (7-16); Aspartate Amino Transferase 23 U/L (0-34); BUN/Creatinine Ratio 16 Ratio (12-20); Bilirubin,Total 0.5 mg/dL (0.3-1.2); Blood Urea Nitrogen 11 mg/dL (9-23); Calcium 9.4 mg/dL (8.3-10.6); Calcium (Corrected) 9.4 mg/dL (8.5-10.1); Carbon Dioxide 24.1 mMol/L (20.0-31.0); Chloride 107 mMol/L (98-107); Creatinine (Component) 0.7 mg/dL (0.6-1.3); Globulin 3.1 gm/dL (2.3-3.5); Glucose 148 mg/dL (74-106); Osmolality,Calculated 285 (275-295); Potassium 3.7 mMol/L (3.4-5.1); Sodium 142 mMol/L (136-145); Total Protein 7.2 gm/dL (5.7-8.2); eGFR > 60 See Note
== END 2025-11-29 23:59 | disposition home or self-care (01) ==
LOC: SCTC 07:25
PROVIDERS: Internal Medicine Hematology & Oncology; PCP Internal Medicine; Referring Provider Internal Medicine; Visit Provider Radiology Therapeutic Radiology
DX: Z51.11 Encounter for antineoplastic chemotherapy (principal); C50.212 Malignant neoplasm of upper-inner quadrant of left female breast; Z17.0 Estrogen receptor positive status [ER+]; Z17.22 Progesterone receptor negative status; Z17.31 Human epidermal growth factor receptor 2 positive status; Z92.3 Personal history of irradiation; Z79.811 Long term (current) use of aromatase inhibitors
CPT/HCPCS: 36591; 80053; 85025; 96413; A4216; J1642; J7040; J7050; Q5117